=== PATIENT | female | born 1940 | race Caucasian/White ===

== ENCOUNTER 2021-02-01 06:49 | Observation (INO) | payer MEDICARE, SELFPAY ==
[2021-02-01] VITALS (15 sets, daily range): BP systolic 167–203; BP diastolic 88–118; PULSE 72–96; RESP 11–18; TEMP 36.2–37.2; O2SAT 94–99; BMI 24.5; BMI 22.8
--- NOTE | 2021-02-01 07:06 | EKG12_ITS ---
Test Reason : SOB Blood Pressure : / mmHG Vent. Rate : 089 BPM Atrial Rate : 089 BPM P-R Int : 182 ms QRS Dur : 088 ms QT Int : 358 ms P-R-T Axes : 079 039 072 degrees QTc Int : 435 ms Normal sinus rhythm Septal infarct , age undetermined Abnormal ECG Confirmed by EVELIN SINGH, BÁRBARA ([id number]), primer expeditor and drier VAZQUEZ HOLT ([id number]) on 02/05/2021 9:53:30 AM Referred By: JUNITO Confirmed By:BÁRBARA WATERS MD
--- NOTE | 2021-02-01 07:06 | RAD_ITS ---
EXAM DESCRIPTION: PORTABLE AP CHEST CLINICAL HISTORY: 80 years Female, chest pain chest pain COMPARISON: None FINDINGS: There is mild levoscoliosis of the thoracic spine. A filter device is noted projected over the inferior vena cava. The rest of the thorax is intact. The heart and mediastinum appear to be within normal limits, but appear to be deviated into the left hemithorax due to the scoliosis.. The lungs appear to be well areated without evidence of pneumonic consolidation or pleural effusion. There is flattening of the hemidiaphragms bilaterally due to COPD. RAD/Chest 1 View (Portable) IMPRESSION: Findings compatible with COPD, otherwise the chest shows no acute pathology Electronically Signed: Mikhail Cortes DO at 7:59 EDT Tel , Service support ,
--- NOTE | 2021-02-01 07:07 | EX.ED.DYSGE1 ---
HPI History of Present Illness Chief Complaint: General Illness Informant: patient Narrative Narrative: Patient presents with some chest heaviness. She describes it across the anterior chest. It does not radiate. This is not something she gets normally. It started this morning. It is better now but not gone. She always has dyspnea so she is not sure if that is worse than normal. She does admit that she has had mild nausea since late last night. But she has had no abdominal pain. She has not gotten diaphoretic. She has not gotten lightheaded or syncopal or presyncopal. She thinks the discomfort lasted a total of maybe 30 minutes or so. But it is not something she has gotten before. She does report having a stress test approximately 3 years ago in [place]. She has never had a heart catheterization. She has not smoked for a long time and has no significant family history of heart disease. She does have high blood pressure but no diabetes or known cholesterol. On history and review of systems I find out that she had an aortic aneurysm repaired about 2.5 years ago. This sounds like it was done through a arterial access stent at [facility]. She does have some lower back pain but it is in the sacral area and it something that she deals with frequently. This is not new or different. She has not had blood in the stools. PFSH PFS Medical History Aortic aneurysm COPD (chronic obstructive pulmonary disease) HTN (hypertension) Home Medications cholecalciferol (vitamin D3) [Vitamin D3] 10 mcg PO DAILY 02/01/21 [History Last Taken 01/31/21] escitalopram oxalate 10 mg PO DAILY 02/01/21 [History Last Taken 01/31/21] metoprolol succinate 25 mg PO BID 02/01/21 [History Last Taken 02/01/21] multivitamin [Multi-Daily] 1 tab PO DAILY 02/01/21 [History Last Taken 01/31/21] Allergy/AdvReac Type Severity Reaction Status Date / Time steriods Allergy Anaphylaxis Uncoded 02/01/21 06:54 Social History Smoking Status: Former smoker ROS ROS ED Constitutional Constitutional ED: Denies chills or fever(s) Eyes Eyes: Denies blurry vision ENT ENT ED: Denies rhinorrhea Cardiovascular Cardiovascular: Reports chest pain; Denies palpitations or racing heartbeat Respiratory/Chest Respiratory/Chest: Reports dyspnea and other Details: Patient has chronic dyspnea and has not had her Spiriva this morning. ; Denies cough or sputum Gastrointestinal Gastrointestinal: Reports nausea; Denies abdominal pain, diarrhea, melena or vomiting Genitourinary Genitourinary ED: Denies dysuria Musculoskeletal Musculoskeletal: Reports back pain Integumentary Denies rash Neurologic Neurologic: Denies headache(s), paresthesias or weakness Allergic/Immunologic Allergic/Immunologic ED: Denies urticaria EXAM Physical Exam Const Vital Signs: 02/01/21 06:51 02/01/21 06:58 02/01/21 07:09 Temperature 97.2 F L Temperature Source Temporal Pulse Rate 96 Respiratory Rate 18 Respiratory Effort Normal Blood Pressure 203/111 H Blood Pressure Mean 141 Pulse Ox 95 99 Oxygen Delivery Method Nasal Cannula Nasal Cannula Nasal Cannula Oxygen Flow Rate (L/min) 2 2 02/01/21 07:15 02/01/21 07:29 02/01/21 08:05 Temperature 97.2 F L 97.6 F L Temperature Source Temporal Oral Pulse Rate 96 85 89 Respiratory Rate 18 14 14 Respiratory Effort Blood Pressure 203/111 H 181/104 H Blood Pressure Mean 141 129 Pulse Ox 99 96 96 Oxygen Delivery Method Nasal Cannula Nasal Cannula Nasal Cannula Oxygen Flow Rate (L/min) 2 2 Positive well nourished and well developed General Appearance ED: well developed and NAD; Negative for cyanotic or diaphoretic HEENT Reports moist mucous membranes Negative for trauma Eyes EOMs intact bilaterally General Eye ED: Negative for pale conjunctiva Neck supple Chest Wall inspection of chest normal and palpation of chest normal Resp normal respiratory effort Resp Narrative: Mild decreased breath sounds but she does breathe shallowly. I do not hear any notable wheezes. Auscultation: diminished lung sounds Cardio regular rate and regular rhythm GI normal to inspection, nondistended, normoactive bowel sounds, non-tender, non-distended and no masses Inspection: Negative for abdominal distention Palpation: soft Back/Spine no CVA tenderness Back/Spine Narrative: Patient soreness is really down in the very low lumbar and primarily upper sacral area. Is not tender. General Back: CVA tenderness Extremity normal to inspection General Extremety ED: Negative for edema or tenderness General Extremity: Negative for edema Neuro oriented x3 Sensorium / Orientation: alert Psych mental status grossly normal Skin no rashes or lesions noted MDM MDM MDM Narrative Medical decision making narrative: Patient with a HEART score of 5. CBC shows no marked abnormalities. Electrolytes show minimal dehydration with elevated BUN to creatinine ratio but normal creatinine level. GFR is over 60. Sodium is minimally low at 127. Lipase is negative. This was checked because patient did have an episode of pancreatitis once many years ago. She is not having abdominal or epigastric pain. With her elevated heart score, nonspecific EKG changes I think she does warrant hospitalization for further evaluation. I have also noticed some PVCs occasionally and even one couplet on her monitor. However, upon recheck she feels back to her baseline. She has absolutely no dyspnea and no chest discomfort at all. I discussed with her and her family about the plan. I have the hospitalist on page. Lab Data Attestation: I reviewed the patient's lab results. Labs: Laboratory Results - last 24 hr 02/01/21 02/01/21 06:57 06:57 WBC 10.0 RBC 4.59 Hgb 12.1 Hct 38.6 MCV 84.1 MCH 26.4 L MCHC 31.3 L RDW Std Deviation 49.6 H RDW Coeff of Lucia 16.1 H Plt Count 333 MPV 10.1 Immature Gran % (Auto) 0.400 Neut % (Auto) 84.5 H Lymph % (Auto) 6.2 L [place] % (Auto) 7.9 Eos % (Auto) 0.8 Baso % (Auto) 0.2 Absolute Neuts (auto) 8.5 H Absolute Lymphs (auto) 0.62 L Nucleated RBC % 0 Sodium 127 L Potassium 4.2 Chloride 91 L Carbon Dioxide 31.0 Anion Gap 5 BUN 26 H Creatinine 0.92 Estim Creat Clear Calc 36.80 Est GFR (MDRD) Af Amer 75 Est GFR (MDRD) Non-Af 62 BUN/Creatinine Ratio 28.2 H Glucose 106 Calcium 9.2 Total Bilirubin 0.60 AST 21 ALT 18 Alkaline Phosphatase 63 Troponin I High Sens 9.4 Total Protein 8.4 H Albumin 3.4 Globulin 5.0 H Albumin/Globulin Ratio 0.7 L Lipase 86 Radiography Diagnostic Testing: Radiology Impression Chest X-Ray 02/01/21 07:06 IMPRESSION: Findings compatible with COPD, otherwise the chest shows no acute pathology Electronically Signed: Mikhail Cortes DO at 7:59 EDT Tel , Service support , EKG Initial EKG: Comments: EKG done for chest pain read by me shows sinus rhythm with rate of 89. No ventricular ectopy on the EKG. There is slight/minimal J-point depression in V4 through V6 with mildly peaked T waves. No acute ST elevation. GA interval, QRS duration and QTc are normal. No old for comparison. Discharge Plan Dx/Rx/DC Orders Clinical Impression: Chest heaviness Disposition Disposition: Acute Care Hospital [facility] Discharge Date/Time: 02/01/21 09:11
[2021-02-01] MEDS: Aspirin 81 MG TAB.CHEW 324 MG PO (07:12)
[2021-02-01 07:16] LABS: Absolute Lymphocyte Count 0.62 X10^3/uL (0.83-4.51); Absolute Neutrophil Count 8.5 X10^3/uL (2.0-7.7); Basophil# 0.02 X10^3/uL; Basophil% 0.2 % (0-1); Eosinophil# 0.08 X10^3/uL; Eosinophils% 0.8 % (0-5); Hematocrit 38.6 % (37-47); Hemoglobin 12.1 g/dL (12.0-15.0); Lymphocyte # 0.62 X10^3/ul (0.83-4.51); Lymphocyte % 6.2 % (19-41); Mean Corp Hgb Conc 31.3 g/dL (32-36); Mean Corpuscular Hgb 26.4 pg (27.0-32.0); Mean Corpuscular Volume 84.1 fL (81-99); Mean Platelet Vol. 10.1 fl (6.2-12.0); Monocyte# 0.79 X10^3/uL; Monocyte% 7.9 % (0-10); NRBC Flagged by Analyzer 0 % (0-5); Neutrophil # 8.45 X10^3/uL (2.7-7.7); Neutrophil % 84.5 % (47-70); Platelet Count 333 K/mm3 (150-450); RBC Distribution Width CV 16.1 % (11.6-14.6); RBC Distribution Width SD 49.6 fl (35.1-43.9); Red Blood Count 4.59 M/mm3 (4.2-5.4)
[2021-02-01 07:29] LABS: ALB/GLOB Ratio 0.7 RATIO (0.9-2.4); AST(SGOT) 21 U/L (15-37); Alanine Aminotransfer ALT/SGPT 18 U/L (13-56); Albumin, Serum 3.4 g/dL (3.2-5.0); Alkaline Phosphatase 63 U/L (45-117); Anion Gap 5 (5-15); BUN 26 mg/dL (7-18); BUN/Creat Ratio 28.2 RATIO (10-20); Calcium,Total 9.2 mg/dL (8.5-10.1); Chloride 91 mmol/L (98-107); Creatinine, Serum 0.92 mg/dL (0.55-1.02); EST Glomerular Filtration Rate 62 mL/min (>60); Est Glom Filt Rate - Afr Amer 75 mL/min (>60); Glucose 106 mg/dL (74-106); Lipase 86 U/L (73-393); Potassium 4.2 mmol/L (3.5-5.1); Protein, Total 8.4 g/dL (6.4-8.2); Sodium Level 127 mmol/L (136-145); Troponin-I HS 9.4 pg/mL (3.0-53.7)
[2021-02-01] MEDS: Ipratropium/Albuterol Sulfate 3 ML AMPUL.NEB INHALATION (07:29)
[2021-02-01] MEDS: Metoprolol(XL)Succ 25 MG Tablet PO ×2 (08:04→20:10)
--- NOTE | 2021-02-01 08:35 | EKG12_ITS ---
Test Reason : CP Blood Pressure : / mmHG Vent. Rate : 093 BPM Atrial Rate : 093 BPM P-R Int : 180 ms QRS Dur : 084 ms QT Int : 354 ms P-R-T Axes : 083 065 068 degrees QTc Int : 440 ms Normal sinus rhythm Normal ECG Confirmed by EVELIN SINGH, BÁRBARA ([id number]), news editor VAZQUEZ HOLT ([id number]) on 02/05/2021 10:09:44 AM Referred By: ASAD Confirmed By:BÁRBARA WATERS MD
[2021-02-01] MEDS: Acetaminophen 325 MG Tablet 650 MG PO ×2 (10:00→16:10)
[2021-02-01 10:06] LABS: Troponin-I HS 11.5 pg/mL (3.0-53.7)
--- NOTE | 2021-02-01 12:04 | CHAPLAIN ---
Type of Pastoral Visit _x__ Initial Visit ___ Follow-up Visit ___ On-call Visit ___ General Patient Visit ___ Spiritual Assessment ___ Family Conference ___ Bereavement ___ Rapid Response ___ Code Blue ___ Other (describe below) Pastoral Care Referral From _x__ Patient ___ Family ___ Nurse ___ Physician ___ Cut Roll Machine Offbearer ___ Newspaper Distributor Supervisor ___ Other (describe below) Sacrament/Intervention _x__ Active listening ___ Anointing ___ Buddhist ___ Bereavement ___ Communion ___ Amanda exploration ___ ___ Life review _x__ Prayer ___ Reconciliation ___ Sacrament of Sick _x__ Supportive presence ___ Wedding ___ Other (describe below) Pastoral Comments
[2021-02-01] MEDS: Multivitamins,Therapeutic Tablet 1 TABLET PO (12:48)
[2021-02-01] MEDS: Escitalopram Oxalate 10 MG Tablet PO (12:48)
[2021-02-01] MEDS: Cholecalciferol (VIT D3) 25 MCG TABLET (1,000 UNITS) PO (12:48)
[2021-02-01 14:05] LABS: Mucous, Urine 0 SEEN /hpf (<or=2+); Red Blood Cells-Urine 0 SEEN /hpf (0-5); Squamous Epithelial Cells - UA 0 SEEN /hpf (5-10)
[2021-02-01 14:06] LABS: Color, Urine Yellow (Yellow); Glucose, Dipstick Normal (Normal); Ketone-Dipstick 5 mg/dl (Negative); Leukocyte Esterase-Dipstick 500 /ul (Negative); Nitrite-Dipstick Negative (Negative); Occult Blood-Urine 50 /ul (Negative); Protein-Dipstick 100 mg/dl (Negative); Specific Gravity, Urine 1.015 (1.002-1.030); Urine Bilirubin Dipstick Negative (Negative); Urine Clarity Sl. Cloudy (Clear); Urine Urobilinogen Normal (Normal)
[2021-02-01 14:14] LABS: Bacteria 3+ /hpf (None Seen); White Blood Cells 10-25 SEEN /hpf (0-5)
--- NOTE | 2021-02-01 14:16 | PCM.HP.STD ---
HPI - General General Date of Admission: 02/01/21 Date of Service: 02/01/21 Chief Complaint: chest pressure HPI Narrative TRACI SOW, is a 80 F who presents chest pain that began today. Midsternal nonradiating. Has had chest pain similar and did have stress as about 3 years ago. Presented emergency room and work-up was unremarkable. The hospital service contacted for admission and further evaluation. [facility] Medical History Aortic aneurysm COPD (chronic obstructive pulmonary disease) HTN (hypertension) Home Medications cholecalciferol (vitamin D3) [Vitamin D3] 10 mcg PO DAILY 02/01/21 [History Last Taken 01/31/21] escitalopram oxalate 10 mg PO DAILY 02/01/21 [History Last Taken 01/31/21] metoprolol succinate 25 mg PO BID 02/01/21 [History Last Taken 02/01/21] multivitamin [Multi-Daily] 1 tab PO DAILY 02/01/21 [History Last Taken 01/31/21] Allergy/AdvReac Type Severity Reaction Status Date / Time steriods Allergy Anaphylaxis Uncoded 02/01/21 06:54 Social History Smoking Status: Former smoker ROS ROS Narrative Chronic shortness of breath but unchanged. Is on oxygen chronically. All review of systems were negative except as mentioned above in the history of present illness and the other review of systems. Cardiovascular Cardiovascular: Reports chest pain Vital Signs Vital Signs Vital Signs: 02/01/21 06:51 02/01/21 06:58 02/01/21 07:09 Temperature 36.2 C L Temperature Source Temporal Pulse Rate 96 Pulse Strength Respiratory Rate 18 Respiratory Effort Normal Respiratory Depth Respiratory Pattern Blood Pressure 203/111 H Blood Pressure [BP] Blood Pressure Mean 141 Blood Pressure Mean [BP] Blood Pressure Source Blood Pressure Source [BP] Blood Pressure Position Blood Pressure Position [BP] Blood Pressure Location Blood Pressure Location [BP] Pulse Ox 95 99 Oxygen Delivery Method Nasal Cannula Nasal Cannula Nasal Cannula Oxygen Flow Rate (L/min) 2 2 02/01/21 07:15 02/01/21 07:29 02/01/21 08:05 Temperature 36.2 C L 36.4 C L Temperature Source Temporal Oral Pulse Rate 96 85 89 Pulse Strength Respiratory Rate 18 14 14 Respiratory Effort Respiratory Depth Respiratory Pattern Blood Pressure 203/111 H 181/104 H Blood Pressure [BP] Blood Pressure Mean 141 129 Blood Pressure Mean [BP] Blood Pressure Source Blood Pressure Source [BP] Blood Pressure Position Blood Pressure Position [BP] Blood Pressure Location Blood Pressure Location [BP] Pulse Ox 99 96 96 Oxygen Delivery Method Nasal Cannula Nasal Cannula Nasal Cannula Oxygen Flow Rate (L/min) 2 2 02/01/21 08:57 02/01/21 09:49 02/01/21 09:55 Temperature 36.6 C Temperature Source Oral Pulse Rate 88 89 Pulse Strength Normal (2+) Respiratory Rate 11 L Respiratory Effort Normal Non-Labored Respiratory Depth Normal Respiratory Pattern Normal Blood Pressure 189/99 H Blood Pressure [BP] Blood Pressure Mean 129 Blood Pressure Mean [BP] Blood Pressure Source Blood Pressure Source [BP] Blood Pressure Position Blood Pressure Position [BP] Blood Pressure Location Blood Pressure Location [BP] Pulse Ox 97 Oxygen Delivery Method Room Air Nasal Cannula Oxygen Flow Rate (L/min) 2.5 02/01/21 10:21 02/01/21 11:40 Temperature 37.2 C Temperature Source Oral Pulse Rate 89 85 Pulse Strength Respiratory Rate 17 Respiratory Effort Respiratory Depth Respiratory Pattern Blood Pressure 201/104 H Blood Pressure [BP] 189/118 H Blood Pressure Mean 136 Blood Pressure Mean [BP] 141 Blood Pressure Source Monitor Blood Pressure Source [BP] Monitor Blood Pressure Position Semi-Fowlers Blood Pressure Position [BP] Semi-Fowlers Blood Pressure Location Right Arm Blood Pressure Location [BP] Right Forearm Pulse Ox 99 Oxygen Delivery Method Nasal Cannula Oxygen Flow Rate (L/min) 2.5 Weight Weight: 54.7 kg Body Mass Index (BMI) 22.8 Physical Exam Const alert HEENT normocephalic Eyes PERRL Resp normal respiratory effort Cardio regular rate, regular rhythm, S1 normal heart sound and S2 normal heart sound GI normal to inspection, nondistended, normoactive bowel sounds, soft to palpation and non-tender Extremity normal to inspection Results Lab / Micro Data Attestation: I reviewed the patient's lab results. Result Diagrams: 02/01/21 06:57 02/01/21 06:57 Labs: Laboratory Results - last 24 hr 02/01/21 06:57: Sodium 127 L, Potassium 4.2, Chloride 91 L, Carbon Dioxide 31.0, Anion Gap 5, BUN 26 H, Creatinine 0.92, Estim Creat Clear Calc 36.80, Est GFR (MDRD) Af Amer 75, Est GFR (MDRD) Non-Af 62, BUN/Creatinine Ratio 28.2 H, Glucose 106, Calcium 9.2, Total Bilirubin 0.60, AST 21, ALT 18, Alkaline Phosphatase 63, Troponin I High Sens 9.4, Total Protein 8.4 H, Albumin 3.4, Globulin 5.0 H, Albumin/Globulin Ratio 0.7 L, Lipase 86 02/01/21 06:57: WBC 10.0, RBC 4.59, Hgb 12.1, Hct 38.6, MCV 84.1, MCH 26.4 L, MCHC 31.3 L, RDW Std Deviation 49.6 H, RDW Coeff of Lucia 16.1 H, Plt Count 333, MPV 10.1, Immature Gran % (Auto) 0.400, Neut % (Auto) 84.5 H, Lymph % (Auto) 6.2 L, [place] % (Auto) 7.9, Eos % (Auto) 0.8, Baso % (Auto) 0.2, Absolute Neuts (auto) 8.5 H, Absolute Lymphs (auto) 0.62 L, Nucleated RBC % 0 02/01/21 09:40: Troponin I High Sens 11.5 02/01/21 13:52: Urine Color Yellow, Urine Clarity Sl. Cloudy, Urine pH 6.0, Ur Specific [place] 1.015, Urine Protein 100 H, Urine Glucose (UA) Normal, Urine Ketones 5 H, Urine Occult Blood 50 H, Urine Nitrite Negative, Urine Bilirubin Negative, Urine Urobilinogen Normal, Ur Leukocyte Esterase 500 H, Urine RBC 0 SEEN, Urine WBC 10-25 SEEN, Ur Squamous Epith Cells 0 SEEN, Urine Bacteria 3+, Urine Mucus 0 SEEN Micro: Microbiology 02/01/21 09:08 Mucosa - Nose SARS-CoV-2 Antigen (Rapid) - Final EKG Initial EKG: Attestation: I personally reviewed and interpreted this EKG as follows: Prior EKG tracings: available for review EKG Rhythm Intrepretation: Sinus Rhythm Radiology Impression Chest X-Ray 02/01/21 07:06 IMPRESSION: Findings compatible with COPD, otherwise the chest shows no acute pathology Electronically Signed: Mikhail Cortes DO at 7:59 EDT Tel , Service support , Assessment & Plan Assessment/Plan (1) Chest heaviness: (2) Hypertensive urgency: (3) Hyponatremia: PLAN: 1. Chest pain Heart score of five Plan is for a chemical stress tests on February 02 2. Hypertensive urgency Will give the patient lisinopril 20 mg and continue. 3. Hyponatremia No additional lab work available to compare to Not on the obvious medications that would contribute Check TSH and a cortisol in a.m. 4. VTE prophylaxis: Not indicated given observation status. Charges/Coding Visit Charges OBSV E&M: 17143 Initial observation care L2
[2021-02-01] MEDS: Lisinopril 20 MG Tablet PO (15:35)
[2021-02-01 16:03] LABS: Troponin-I HS 10.7 pg/mL (3.0-53.7)
--- NOTE | 2021-02-01 18:52 | NURSING ---
This RN in to speak with patient regarding call with Dr. Saeed. Daughter and son-in-law at bedside. RN informed patient that Dr. Saeed is aware that she would like to refuse her stress test due to fear of fpc kidney issues if dye is used per her previous briar cutter. RN explains to patient and family that per Dr. Saeed dye is not used during nuclear stress test, but that an isotope is used instead. Patient is still able to refuse her stress test if she likes. Daughter asks RN what would happen if patient wouldn't have stress test done. RN informed daughter that patient could suffer a severe cardiac event and could occur if a cardiac problem was not detected due to patient refusing stress test and possible heart catheterization if need should arise. Patient and daughter voice understanding of same.
[2021-02-02] VITALS (8 sets, daily range): BP systolic 115–185; BP diastolic 59–100; PULSE 78–92; RESP 14–18; TEMP 36.3–37.4; O2SAT 97–99
[2021-02-02] MEDS: Acetaminophen 325 MG Tablet 650 MG PO ×2 (00:48→08:39)
--- NOTE | 2021-02-02 05:55 | EKG12_ITS ---
Test Reason : AM EKG Blood Pressure : / mmHG Vent. Rate : 079 BPM Atrial Rate : 079 BPM P-R Int : 188 ms QRS Dur : 092 ms QT Int : 406 ms P-R-T Axes : 089 057 071 degrees QTc Int : 465 ms Sinus rhythm with occasional Premature ventricular complexes Otherwise normal ECG Confirmed by EVELIN SINGH, BÁRBARA ([id number]), image editor VAZQUEZ HOLT ([id number]) on 02/05/2021 10:09:09 AM Referred By: ANNA Confirmed By:BÁRBARA WATERS MD
[2021-02-02 06:19] LABS: Anion Gap 8 (5-15); BUN 20 mg/dL (7-18); BUN/Creat Ratio 24.8 RATIO (10-20); Calcium,Total 9.3 mg/dL (8.5-10.1); Chloride 88 mmol/L (98-107); Cholesterol 197 mg/dL (200); Creatinine, Serum 0.81 mg/dL (0.55-1.02); EST Glomerular Filtration Rate 73 mL/min (>60); Est Glom Filt Rate - Afr Amer 88 mL/min (>60); Glucose 107 mg/dL (74-106); High Density Lipoprotein 70 mg/dL; Potassium 4.4 mmol/L (3.5-5.1); Sodium Level 127 mmol/L (136-145); Triglycerides 74 mg/dL; Very Low Density Lipoprotein 15 mg/dL (5-40)
[2021-02-02] MEDS: Metoprolol(XL)Succ 25 MG Tablet PO (08:40)
[2021-02-02] MEDS: Aspirin E.C. 81 MG Tablet PO (08:40)
[2021-02-02] MEDS: Multivitamins,Therapeutic Tablet 1 TABLET PO (08:40)
[2021-02-02] MEDS: Escitalopram Oxalate 10 MG Tablet PO (08:40)
[2021-02-02] MEDS: Cholecalciferol (VIT D3) 25 MCG TABLET (1,000 UNITS) PO (08:41)
[2021-02-02] MEDS: Lisinopril 20 MG Tablet PO (08:41)
--- NOTE | 2021-02-02 10:20 | CASEMGMT ---
This RN CM to room with HERNÁNDEZ form, explanation done-pt voices understanding, and signs HERNÁNDEZ form. Original to chart and copy to pt. Pt states that she is now refusing stress test as of last evening. Pt voices no further questions/concerns/needs. [place] PRISCA MCGRATH
--- NOTE | 2021-02-02 11:47 | PCM.DC ---
Discharge Instructions Diet Discharge Diet: No restrictions Activity Discharge Activity: Return to Normal Activity Follow Up Care Test Results: Test results from this visit will be discussed in further detail at your follow-up appointment, if applicable. Discharge Plan Admission Admit Date/Time: 02/01/21 08:40 Primary Reason for Your Visit: chest pain Attending Provider: Billy Saeed Primary Care Provider: Ruth Mcallister Discharge Orders/Prescriptions Prescriptions: New lisinopril 20 mg Tablet 20 mg PO DAILY Qty: 30 RF: 0 aspirin 81 mg Tablet,Delayed Release (Dr/Ec) 81 mg PO DAILY@0800 Qty: 0 RF: 0 albuterol sulfate 90 mcg/actuation HFA aerosol inhaler 2 puff inhalation Q4H PRN (Reason: shortness of breath or wheezing) Qty: 8.5 RF: 0 Continued multivitamin Tablet 1 tab PO DAILY RF: 0 metoprolol succinate 25 mg Tablet Extended Release 24 Hr 25 mg PO BID RF: 0 cholecalciferol (vitamin D3) [Vitamin D3] 10 mcg (400 unit) Capsule 10 mcg PO DAILY RF: 0 escitalopram oxalate 10 mg Tablet 10 mg PO DAILY RF: 0 Referrals / Follow Up: Ruth Mcallister MD [Primary Care Provider] - Within 1 Week Disposition Disposition (needs filled in before D/C Order can be placed): Home, Self Care
--- NOTE | 2021-02-02 11:51 | DS.PCM_ITS ---
Providers Date of Admission: 02/01/21 Primary Care Physician: Dr. Ruth Mcallister MD Reason For Visit: CHEST PAIN Diagnosis Discharge Diagnosis (1) Chest heaviness: Status: Acute Code(s): R07.89 - Other chest pain (2) Hypertensive urgency: Status: Acute Code(s): I16.0 - Hypertensive urgency (3) Hyponatremia: Status: Acute Code(s): E87.1 - Hypo-osmolality and hyponatremia Medications at Discharge Home Medications cholecalciferol (vitamin D3) [Vitamin D3] 10 mcg PO DAILY 02/01/21 escitalopram oxalate 10 mg PO DAILY 02/01/21 metoprolol succinate 25 mg PO BID 02/01/21 multivitamin 1 tab PO DAILY 02/01/21 albuterol sulfate 2 puff INHALATION Q4H PRN #8.5 g 02/02/21 aspirin 81 mg PO DAILY@0800 #0 tab 02/02/21 lisinopril 20 mg PO DAILY #30 tab 02/02/21 Hospital Course Operations None Procedures None Summary of Care Provided Minutes Spent on Discharge: 26 Hospital Course: 80-year-old female presents with chest pain. Chest pain began on the fifth. It was midsternal nonradiating. Had a cardiac work-up including EKG and troponins that were unremarkable. Stress test was ordered, however the patient declined at. Given absence of any evidence of any ischemia and normal lab work, I feel that it is not unreasonable to not commence with a stress test. However the symptoms do recur then it be reconsidered. Similar symptoms may been exacerbated due to hypertensive urgency. Patient was have a systolic well over 200. Patient started lisinopril 20 mg and blood pressure has improved but still elevated with a systolic in the 170s. Patient will continue with the lisinopril 20 mg daily with possible titration or additional agents in the future if necessary. Patient did have some hyponatremia. Patient not any obvious medication secondary could be contributing. Cortisol was normal. This will require follow-up as outpatient. Physical Exam Const alert and oriented x3 Resp normal respiratory effort, no retractions, no use of accessory muscles and clear to auscultation bilaterally Cardio regular rate, regular rhythm, S1 normal heart sound and S2 normal heart sound Weight / BMI Weight Weight: 54.7 kg Body Mass Index (BMI) 22.8 ABG / Lab / Microbiology Data Result Diagrams: 02/01/21 06:57 02/02/21 05:23 Laboratory: Laboratory Results - last 24 hr 02/01/21 13:52: Urine Color Yellow, Urine Clarity Sl. Cloudy, Urine pH 6.0, Ur Specific [place] 1.015, Urine Protein 100 H, Urine Glucose (UA) Normal, Urine Ketones 5 H, Urine Occult Blood 50 H, Urine Nitrite Negative, Urine Bilirubin Ne gative, Urine Urobilinogen Normal, Ur Leukocyte Esterase 500 H, Urine RBC 0 S EEN, Urine WBC 10-25 SEEN, Ur Squamous Epith Cells 0 SEEN, Urine Bacteria 3+, Urine Mucus 0 SEEN 02/01/21 15:22: Troponin I High Sens 10.7 02/02/21 05:23: Sodium 127 L, Potassium 4.4, Chloride 88 L, Carbon Dioxide 31.0, Anion Gap 8, BUN 20 H, Creatinine 0.81, Estim Creat Clear Calc 41.80, Est GFR (MDRD) Af Amer 88, Est GFR (MDRD) Non-Af 73, BUN/Creatinine Ratio 24.8 H, Glucose 107 H, Calcium 9.3, Triglycerides 74, Cholesterol 197, LDL Cholesterol 112, VLDL Cholesterol 15, HDL Cholesterol 70 02/02/21 05:23: Cortisol 34.10 H Microbiology: Microbiology 02/01/21 09:08 Mucosa - Nose SARS-CoV-2 Antigen (Rapid) - Final D/C Instructions Discharge Diet: No restrictions Meaningful Use Info Meaningful Use Diagnoses (Choose all that apply): None applicable Discharge Plan Admission Admit Date/Time: 02/01/21 08:40 Primary Reason for Your Visit: chest pain Attending Provider: Billy Saeed Primary Care Provider: Ruth Mcallister Discharge Orders/Prescriptions Prescriptions: New lisinopril 20 mg Tablet 20 mg PO DAILY Qty: 30 RF: 0 aspirin 81 mg Tablet,Delayed Release (Dr/Ec) 81 mg PO DAILY@0800 Qty: 0 RF: 0 albuterol sulfate 90 mcg/actuation HFA aerosol inhaler 2 puff inhalation Q4H PRN (Reason: shortness of breath or wheezing) Qty: 8.5 RF: 0 Continued multivitamin Tablet 1 tab PO DAILY RF: 0 metoprolol succinate 25 mg Tablet Extended Release 24 Hr 25 mg PO BID RF: 0 cholecalciferol (vitamin D3) [Vitamin D3] 10 mcg (400 unit) Capsule 10 mcg PO DAILY RF: 0 escitalopram oxalate 10 mg Tablet 10 mg PO DAILY RF: 0 Referrals / Follow Up: Ruth Mcallister MD [Primary Care Provider] - Within 1 Week Disposition Disposition (needs filled in before D/C Order can be placed): Home, Self Care Charges/Coding Visit Charges OBSV E&M: 15900 Observation care discharge
== END 2021-02-02 11:50 | disposition home or self-care (01) ==
LOC: ED 08:19 → PCU 08:46
PROVIDERS: Emergency Provider Emergency Medicine; PCP Internal Medicine
DX: R07.89 Other chest pain (principal); I16.0 Hypertensive urgency; E87.1 Hypo-osmolality and hyponatremia; R11.0 Nausea; I10 Essential (primary) hypertension; M54.5 Low back pain; Z79.899 Other long term (current) drug therapy; J44.9 Chronic obstructive pulmonary disease, unspecified; Z87.891 Personal history of nicotine dependence
CPT/HCPCS: 36415; 71045; 80048; 80053; 80061; 81001; 82533; 83690; 84484; 85025; 87426; 93005; 94640; 99218; 99285; A4216; G0378; J2785

== ENCOUNTER 2022-01-31 08:56 | Emergency (ER) | payer MEDICARE, SELFPAY ==
[2022-01-31 08:57] VITALS: BP 165/84; PULSE 79; RESP 17; TEMP 36.1; O2SAT 97; BMI 22.6
--- NOTE | 2022-01-31 09:21 | EDS_ITS ---
HPI <EVE Rush - Last Filed: 01/31/22 13:34> History of Present Illness Chief Complaint: Abd Pain Narrative Narrative: 81-year-old female with history of TIA, anxiety, COPD on 3 L of nasal cannula daily presents to the emergency department with a 1 week of intermittent left upper abdominal pain. Patient states that the pain is intermittent, does not matter if she eats, moves. Patient states last evening when she went to bed she had no pain, she went to go to the bathroom in the middle the night, and the pain was so bad she was unable to sleep. Patient states the pain now has dull down to a small ache, however feels sore in her left upper quadrant wraps around to her back. She denies any fevers or chills, patient states to have nausea however no vomiting. Denies any difficulty urinating, denies any blood in stool or vomit. PFSH <EVE Rush - Last Filed: 01/31/22 13:34> [facility] Medical History (Updated 01/31/22 @ 13:34 by EVE Rush) Aortic aneurysm COPD (chronic obstructive pulmonary disease) HTN (hypertension) Home Medications cholecalciferol (vitamin D3) 10 mcg (400 unit) capsule (Vitamin D3) 10 mcg PO DAILY 02/01/21 [History Last Taken 01/31/21] escitalopram oxalate 10 mg tablet 10 mg PO DAILY 02/01/21 [History Last Taken 01/31/21] metoprolol succinate 25 mg tablet,extended release 24 hr 25 mg PO BID 02/01/21 [History Last Taken 02/01/21] multivitamin 1 tab PO DAILY 02/01/21 [History Last Taken 01/31/21] tiotropium bromide 18 mcg capsule with inhalation device (Spiriva with HandiHaler) 18 mcg inhalation DAILY 02/02/21 [History Last Taken Unknown] Allergy/AdvReac Type Severity Reaction Status Date / Time steriods Allergy Anaphylaxis Uncoded 01/31/22 08:56 Surgical History H/O: hysterectomy Social History Smoking Status: Former smoker ROS <EVE Rush - Last Filed: 01/31/22 13:34> ROS ED ROS Narrative Constitutional: Negative for fever, chills, weight loss, weakness Eyes: Negative for vision loss, vision change, double vision ENT: Negative for any sore throat, ear pain, congestion Cardiovascular: Negative for any chest pain, tightness, palpitations Respiratory: Negative for any cough, sputum production, hemoptysis, dyspnea, dyspnea on exertion, orthopnea Gastrointestinal: Negative for any vomiting, diarrhea, constipation, blood in stool, blood in vomit. Positive for abdominal pain, nausea : Negative for any urinary frequency, dysuria, retention, blood in urine Muscle skeletal: Negative for any muscle joint pain, stiffness, myalgias, arthralgias, neck pain, back pain Neurological: Negative for any headache, syncope, numbness or tingling, dizziness Skin: Negative for any rashes, lumps, itching, abrasions, lacerations Psychiatric: Negative for any depression, anxiety, stress, suicidal ideation, homicidal ideation Hematologic: Negative for any easy bruising, excessive bruising, easy bleeding Allergies: Negative for any eczema, hives, rash EXAM <Darwin GrupoDERRICK lala-C - Last Filed: 01/31/22 13:34> Physical Exam Narrative Exam Narrative: Vital signs reviewed. Patient's vital signs stable, patient is on 3 L nasal cannula. HEET: Head normocephalic atraumatic, TMs clear bilaterally. Posterior pharynx is clear, moist mucous membranes. Nares clear bilaterally. Neck: Supple with no lymphadenopathy or tenderness. No signs of meningismus, negative jolt sign. Cardiac: Regular rate and rhythm no murmurs gallops or rubs, equal peripheral pulses bilaterally. Respiratory: Lungs clear to auscultation bilaterally. No chest tenderness. Abdomen: Soft, nontender, nondistended. No abdominal bruit or pulsatile masses. No hepatosplenomegaly Extremities: No peripheral edema, no signs of gross trauma or deformity. Active full range of motion of all extremities. Neuro: Cranial nerves II through XII intact, no focal neurological deficits. Skin: Clean dry and intact with no rash, purpura, petechiae, vesicles or pustules. Backs/flank: No CVA tenderness, no midline spinal tenderness, no deformity. Psych: Normal mood and affect. No SI, HI or acute psychosis. Const Vital Signs: 01/31/22 08:57 01/31/22 11:12 01/31/22 12:00 Temperature 97.0 F L Temperature Source Temporal Pulse Rate 79 76 Respiratory Rate 17 18 Blood Pressure 165/84 H 169/96 H Blood Pressure Mean 111 120 Pulse Ox 97 100 Oxygen Delivery Method Nasal Cannula Room Air Nasal Cannula Oxygen Flow Rate (L/min) 3 3 Positive well nourished and well developed General Appearance ED: well developed <Dr. Kade Vuong DO - Last Filed: 01/31/22 14:45> Physical Exam Const Vital Signs: 01/31/22 08:57 01/31/22 11:12 01/31/22 12:00 Temperature 97.0 F L Temperature Source Temporal Pulse Rate 79 76 Respiratory Rate 17 18 Blood Pressure 165/84 H 169/96 H Blood Pressure Mean 111 120 Pulse Ox 97 100 Oxygen Delivery Method Nasal Cannula Room Air Nasal Cannula Oxygen Flow Rate (L/min) 3 3 MDM <EVE Rush - Last Filed: 01/31/22 13:34> MDM Lab Data Labs: Laboratory Results - last 24 hr 01/31/22 01/31/22 01/31/22 09:34 09:34 10:55 WBC 8.0 RBC 4.36 Hgb 11.6 L Hct 36.4 L MCV 83.5 MCH 26.6 L MCHC 31.9 L RDW Std Deviation 49.0 H RDW Coeff of Lucia 16.1 H Plt Count 277 MPV 9.7 Immature Gran % (Auto) 0.400 Neut % (Auto) 83.7 H Lymph % (Auto) 6.1 L [place] % (Auto) 7.4 Eos % (Auto) 2.0 Baso % (Auto) 0.4 Absolute Neuts (auto) 6.7 Absolute Lymphs (auto) 0.49 L Nucleated RBC % 0 Platelet Estimate ADEQUATE RBC Morphology NORM C+C Sodium 129 L Potassium 4.4 Chloride 92 L Carbon Dioxide 33.0 H Anion Gap 4 L BUN 26 H Creatinine 1.01 Estim Creat Clear Calc 31.38 Est GFR (MDRD) Af Amer 68 Est GFR (MDRD) Non-Af 56 L BUN/Creatinine Ratio 25.7 H Glucose 91 Calcium 8.9 Total Bilirubin 0.40 AST 19 ALT 18 Alkaline Phosphatase 69 Total Protein 7.9 Albumin 3.1 L Globulin 4.8 H Albumin/Globulin Ratio 0.6 L Lipase 73 Urine Color Yellow Urine Clarity Sl. Cloudy Urine pH 6.0 Ur Specific [place] 1.015 Urine Protein 15 H Urine Glucose (UA) Normal Urine Ketones Negative Urine Occult Blood 10 H Urine Nitrite Positive H Urine Bilirubin Negative Urine Urobilinogen Normal Ur Leukocyte Esterase 25 H Urine RBC 0 SEEN Urine WBC 0-5 SEEN Ur Squamous Epith Cells 0 SEEN Urine Bacteria 1+ Urine Mucus 0 SEEN Radiography Diagnostic Testing: Clinical Impression(s) from Imaging Studies Abdomen/Pelvis CT 01/31/22 10:15 IMPRESSION: 1. 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 An endograft of the abdominal aorta and iliac arteries is also present. 2. Small gallstone 3. Colonic diverticulosis 4. 4 mm right kidney stone Electronically Signed: Luigi Hamilton MD at 10:33 EDT , Gallbladder Ultrasound 01/31/22 11:06 IMPRESSION: 1. Single 1 cm gallstone and small amount of gallbladder sludge Electronically Signed: Luigi Hamilton MD at 13:01 EDT , Treatment and Re-Evaluation Narrative: Patient appears well, patient appears nontoxic, vital signs are stable. Patient presents to the emergency department with complaints of left upper abdominal pain that radiates to her back on and off for 1 week. Patient did receive a full abdominal work-up, patient CBC was unremarkable, chemistry shows slight hyponatremia with a sodium of 129, patient's urinalysis does show infection with 1+ bacteria, 25 leukocytes, positive nitrites. She was given IV Rocephin. Patient did receive a CT of the abdomen pelvis without contrast, it showed her old 9.9 cm aneurysm that has been corrected. Patient does have a small gallstone, some diverticulosis as well as a 4 mm right kidney stone. Patient will receive a right upper quadrant ultrasound to rule out any other pathology. Patient is resting comfortably in bed. Patient received a ultrasound of the right upper quadrant, there was a single 1 cm gallstone and a small amount of gallbladder sludge. Patient on reassessment was not in any discomfort, patient appears nontoxic. At this time I believe the patient follow-up outpatient. She will follow-up with Dr. Lal who is a surgeon, and will follow up outpatient. Patient given strict return precaution to return for any worsening pain, fever, chills, nausea vomiting <Dr. Kade Vuong, DO - Last Filed: 01/31/22 14:45> [facility] Narrative Medical decision making narrative: Attending note: Patient seen and evaluated with septic tank setter. I perform my own ofde-tv-rtac evaluation. I agree with the plan of work-up. Mid abdominal pain rating to left side since yesterday. Nausea without vomiting. She did not eat breakfast. For dinner ate a sandwich with Darden there is no cheese. Denies fevers. History of AAA with repair 4 years ago. Exam epigastric tenderness without guarding or rebound negative Haider's McBurney's tenderness. There is no rash on the left side of abdomen. No ecchymosis. Abdominal labs normal except for sodium 129. Urine noted signs of infection culture sent started on antibiotics. CT scan negative for acute process except for noted gallstones. Other stable abdominal stenting with no leaking. Patient was traditional Pepcid Toradol. Ultrasound obtained due to cholelithiasis noted cholelithiasis with slight/there is no signs of cholecystitis. Symptoms were improving. Discharged with follow-up with surgery as an outpatient return precautions. Lab Data Labs: Laboratory Results - last 24 hr 01/31/22 01/31/22 01/31/22 09:34 09:34 10:55 WBC 8.0 RBC 4.36 Hgb 11.6 L Hct 36.4 L MCV 83.5 MCH 26.6 L MCHC 31.9 L RDW Std Deviation 49.0 H RDW Coeff of Lucia 16.1 H Plt Count 277 MPV 9.7 Immature Gran % (Auto) 0.400 Neut % (Auto) 83.7 H Lymph % (Auto) 6.1 L [place] % (Auto) 7.4 Eos % (Auto) 2.0 Baso % (Auto) 0.4 Absolute Neuts (auto) 6.7 Absolute Lymphs (auto) 0.49 L Nucleated RBC % 0 Platelet Estimate ADEQUATE RBC Morphology NORM C+C Sodium 129 L Potassium 4.4 Chloride 92 L Carbon Dioxide 33.0 H Anion Gap 4 L BUN 26 H Creatinine 1.01 Estim Creat Clear Calc 31.38 Est GFR (MDRD) Af Amer 68 Est GFR (MDRD) Non-Af 56 L BUN/Creatinine Ratio 25.7 H Glucose 91 Calcium 8.9 Total Bilirubin 0.40 AST 19 ALT 18 Alkaline Phosphatase 69 Total Protein 7.9 Albumin 3.1 L Globulin 4.8 H Albumin/Globulin Ratio 0.6 L Lipase 73 Urine Color Yellow Urine Clarity Sl. Cloudy Urine pH 6.0 Ur Specific [place] 1.015 Urine Protein 15 H Urine Glucose (UA) Normal Urine Ketones Negative Urine Occult Blood 10 H Urine Nitrite Positive H Urine Bilirubin Negative Urine Urobilinogen Normal Ur Leukocyte Esterase 25 H Urine RBC 0 SEEN Urine WBC 0-5 SEEN Ur Squamous Epith Cells 0 SEEN Urine Bacteria 1+ Urine Mucus 0 SEEN Radiography Diagnostic Testing: Clinical Impression(s) from Imaging Studies Abdomen/Pelvis CT 01/31/22 10:15 IMPRESSION: 1. 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 An endograft of the abdominal aorta and iliac arteries is also present. 2. Small gallstone 3. Colonic diverticulosis 4. 4 mm right kidney stone Electronically Signed: Luigi Hamilton MD at 10:33 EDT Reading Location ID and State: [id number] , Service support , Gallbladder Ultrasound 01/31/22 11:06 IMPRESSION: 1. Single 1 cm gallstone and small amount of gallbladder sludge Electronically Signed: Luigi Hamilton MD at 13:01 EDT , Discharge Plan Triage Chief Complaint: Abd Pain ED Midlevel Provider: Darwin Pedraza ED Provider: Kade Vuong Dx/Rx/DC Orders Clinical Impression: Abdominal pain, Cholelithiasis, Nausea & vomiting Instructions: Abdominal Pain, ED Gallstones with Biliary Colic Prescriptions: No Action multivitamin Tablet 1 tab PO DAILY metoprolol succinate 25 mg Tablet Extended Release 24 Hr 25 mg PO BID cholecalciferol (vitamin D3) [Vitamin D3] 10 mcg (400 unit) Capsule 10 mcg PO DAILY escitalopram oxalate 10 mg Tablet 10 mg PO DAILY Spiriva with HandiHaler 18 mcg capsule, w/inhalation device 18 mcg INHALATION DAILY Label Comments: INHALE CONTENTS OF 1 CAPSULE VIA HANDIHALER ONCE DAILY Primary Care Provider: Ruth Mcallister Referrals: Ruth Mcallister MD [Primary Care Provider] - Indu Rodriguez MD [Med Staff - Active Staff] - (Please follow-up in the next 1 to 2 weeks) Activity Restrictions/Additional Instructions: Please return here for uncontrolled pain, nausea, vomiting, fever or chills. Disposition Disposition: Home, Self Care Discharge Date/Time: 01/31/22 13:56
[2022-01-31 09:47] LABS: Absolute Lymphocyte Count 0.49 X10^3/uL (0.83-4.51); Absolute Neutrophil Count 6.7 X10^3/uL (2.0-7.7); Basophil# 0.03 X10^3/uL; Basophil% 0.4 % (0-1); Eosinophil# 0.16 X10^3/uL; Hematocrit 36.4 % (37-47); Hemoglobin 11.6 g/dL (12.0-15.0); Lymphocyte # 0.49 X10^3/ul (0.83-4.51); Lymphocyte % 6.1 % (19-41); Mean Corp Hgb Conc 31.9 g/dL (32-36); Mean Corpuscular Hgb 26.6 pg (27.0-32.0); Mean Corpuscular Volume 83.5 fL (81-99); Mean Platelet Vol. 9.7 fl (6.2-12.0); Monocyte# 0.59 X10^3/uL; Monocyte% 7.4 % (0-10); NRBC Flagged by Analyzer 0 % (0-5); Neutrophil # 6.71 X10^3/uL (2.7-7.7); Neutrophil % 83.7 % (47-70); POSITIVE DIFFERENTIAL YES; Platelet Count 277 K/mm3 (150-450); RBC Distribution Width CV 16.1 % (11.6-14.6); Red Blood Count 4.36 M/mm3 (4.2-5.4)
[2022-01-31 09:52] LABS: Differential Indicated SCAN CRITERIA MET
[2022-01-31 10:00] LABS: ALB/GLOB Ratio 0.6 RATIO (0.9-2.4); AST(SGOT) 19 U/L (15-37); Alanine Aminotransfer ALT/SGPT 18 U/L (13-56); Albumin, Serum 3.1 g/dL (3.2-5.0); Alkaline Phosphatase 69 U/L (45-117); Anion Gap 4 (5-15); BUN 26 mg/dL (7-18); BUN/Creat Ratio 25.7 RATIO (10-20); Calcium,Total 8.9 mg/dL (8.5-10.1); Chloride 92 mmol/L (98-107); Creatinine, Serum 1.01 mg/dL (0.55-1.02); EST Glomerular Filtration Rate 56 mL/min (>60); Est Glom Filt Rate - Afr Amer 68 mL/min (>60); Estimated Creatinine Clearance 31.38 ml/min; Globulin 4.8 g/dL (2.2-4.2); Glucose 91 mg/dL (74-106); Lipase 73 U/L (73-393); Potassium 4.4 mmol/L (3.5-5.1); Protein, Total 7.9 g/dL (6.4-8.2); Sodium Level 129 mmol/L (136-145)
[2022-01-31] MEDS: Ondansetron 4 MG/2 ML Vial IV (10:02)
[2022-01-31] MEDS: 0.9% Normal Saline 1,000 ML 1000 ML IV (10:02)
--- NOTE | 2022-01-31 10:15 | CT_ITS ---
STUDY: CT ABDOMEN AND PELVIS WITHOUT CONTRAST REASON FOR EXAM: Female, 81 years old. abdominal pain ABDOMINAL PAIN X 1 WEEK WITH NAUSEA RADIATION DOSAGE (If Supplied By Facility): CTDIvol = ( 6.33 ) mGy, DLP = ( 284.66 ) mGycm TECHNIQUE: Transaxial images were obtained from the dome of the diaphragm to the symphysis pubis without oral contrast, and without intravenous contrast. Sagittal and coronal images were reconstructed. Individualized dose optimization techniques were used for this CT. COMPARISON: None. 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 An endograft of the abdominal aorta and iliac arteries is also present. 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 No free fluid or free air is present. 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 Diffuse cystic emphysematous changes are present. Normal liver. There is a solitary gallstone. Normal spleen. Normal pancreas. Normal bilateral adrenal glands. There is mild cortical atrophy of the right kidney, consistent with chronic medical renal disease. A 4 mm calyceal stone is present upper pole of the right kidney. Normal left kidney. Normal visualized stomach. Normal small intestine. There are multiple colonic diverticula consistent with diverticulosis. The appendix is visualized and appears normal. No visualized bowel dilatation or evidence of obstruction. Normal inferior vena cava. Normal retroperitoneum. Normal urinary bladder. Normal abdominal wall. There are diffuse degenerative changes of the visualized lumbar spine. CT/Abdomen/Pelvis without Cont IMPRESSION: 1. 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 An endograft of the abdominal aorta and iliac arteries is also present. 2. Small gallstone 3. Colonic diverticulosis 4. 4 mm right kidney stone Electronically Signed: Luigi Hamilton MD at 10:33 EDT ,
[2022-01-31 10:25] LABS: Platelet Estimate ADEQUATE (ADEQ); Red Cell Morphology NORM C+C NORMAL (NORM C&C)
[2022-01-31 10:58] LABS: Mucous, Urine 0 SEEN /hpf (<or=2+); Red Blood Cells-Urine 0 SEEN /hpf (0-5); Squamous Epithelial Cells - UA 0 SEEN /hpf (5-10)
[2022-01-31 11:00] LABS: Color, Urine Yellow (Yellow); Glucose, Dipstick Normal (Normal); Ketone-Dipstick Negative (Negative); Leukocyte Esterase-Dipstick 25 /ul (Negative); Nitrite-Dipstick Positive (Negative); Occult Blood-Urine 10 /ul (Negative); Protein-Dipstick 15 mg/dl (Negative); Specific Gravity, Urine 1.015 (1.002-1.030); Urine Bilirubin Dipstick Negative (Negative); Urine Clarity Sl. Cloudy (Clear); Urine Urobilinogen Normal (Normal)
[2022-01-31 11:06] LABS: Bacteria 1+ /hpf (None Seen); White Blood Cells 0-5 SEEN /hpf (0-5)
--- NOTE | 2022-01-31 11:06 | US_ITS ---
STUDY: ABDOMINAL ULTRASOUND - RIGHT UPPER QUADRANT REASON FOR VISIT: Female, 81 years old abd pain TECHNIQUE: Ultrasound evaluation of the right upper quadrant was performed with real-time and static chu-scale imaging. TECHNICAL QUALITY: Adequate. COMPARISON: CT of abdomen and pelvis dated January 31, 2022 FINDINGS: Liver: The liver measures 16.8 cm. There is normal echogenicity of the liver. The bile ducts are within normal limits. There is hepatic color flow. The direction of portal flow is hepatopetal. There is no demonstrated mass lesion. Gallbladder: Normal distended gallbladder. The gallbladder wall measures mm. There is a negative sonographic Haider''s sign. There is no pericholecystic fluid. A single 1.09 cm stone is present. A small amount of gallbladder sludge is present. Common Bile Duct (C.B.D.): The common bile duct measures mm. Pancreas: Normal size of the head and body of the pancreas. There is normal echogenicity of the pancreas. There is no demonstrated pancreatic mass or cyst. Right Kidney: Normal size of the right kidney. The right kidney measures 8.7 x 4.5 x 3.9 cm. Normal renal cortex. The right cortex measures 1.1 cm. There is no demonstrated renal mass or cyst. There is no right hydronephrosis. US/Gallbladder IMPRESSION: 1. Single 1 cm gallstone and small amount of gallbladder sludge Electronically Signed: Luigi Hamilton MD at 13:01 EDT ,
[2022-01-31] MEDS: Ketorolac 15 MG/ML Vial IV (11:16)
[2022-01-31] MEDS: Famotidine 200 MG/20 ML MDV 20 MG in 0.9% Normal Saline (Pres. free 8 ML 300 MG IV (11:21)
[2022-01-31] MEDS: Ceftriaxone 1 GM/50 ML BAG IV (11:29)
[2022-01-31 12:00] VITALS: BP 169/96; PULSE 76; RESP 18; O2SAT 100
== END 2022-01-31 13:56 | disposition home or self-care (01) ==
PROVIDERS: Nurse Practitioner; Emergency Provider Emergency Medicine; PCP Internal Medicine; Visit Provider Emergency Medicine
DX: K80.20 Calculus of gallbladder without cholecystitis without obstruction (principal); J44.9 Chronic obstructive pulmonary disease, unspecified; F41.9 Anxiety disorder, unspecified; I10 Essential (primary) hypertension; Z87.891 Personal history of nicotine dependence; Z86.73 Personal history of transient ischemic attack (TIA), and cerebral infarction without residual deficits; Z79.899 Other long term (current) drug therapy
CPT/HCPCS: 74176; 76705; 80053; 81001; 83690; 85025; 87086; 87088; 87186; 96365; 96368; 96375; 99285; P9612; J2405; J3490

== ENCOUNTER 2023-04-27 09:24 | Observation (INO) | payer MEDICARE, SELFPAY ==
[2023-04-27] VITALS (11 sets, daily range): BP systolic 121–176; BP diastolic 62–96; PULSE 78–99; RESP 16–19; TEMP 36.6–37; O2SAT 93–100; BMI 21.2; BMI 21.5
[2023-04-27 10:13] LABS: Absolute Lymphocyte Count 0.25 X10^3/uL (0.83-4.51); Absolute Neutrophil Count 14.2 X10^3/uL (2.0-7.7); Basophil# 0.04 X10^3/uL; Basophil% 0.3 % (0-1); Eosinophil# 0.07 X10^3/uL; Eosinophils% 0.4 % (0-5); Hemoglobin 11.5 g/dL (12.0-15.0); Lymphocyte # 0.25 X10^3/ul (0.83-4.51); Lymphocyte % 1.6 % (19-41); Mean Corp Hgb Conc 31.1 g/dL (32-36); Mean Corpuscular Hgb 26.6 pg (27.0-32.0); Mean Corpuscular Volume 85.6 fL (81-99); Mean Platelet Vol. 10.6 fl (6.2-12.0); Monocyte# 0.93 X10^3/uL; NRBC Flagged by Analyzer 0 % (0-5); Neutrophil # 14.23 X10^3/uL (2.7-7.7); Neutrophil % 91.3 % (47-70); POSITIVE DIFFERENTIAL YES; Platelet Count 258 K/mm3 (150-450); RBC Distribution Width CV 16.1 % (11.6-14.6); RBC Distribution Width SD 50.3 fl (35.1-43.9); Red Blood Count 4.32 M/mm3 (4.2-5.4); White Blood Count 15.6 K/mm3 (4.4-11.0)
[2023-04-27 10:19] LABS: Differential Indicated SCAN CRITERIA MET
--- NOTE | 2023-04-27 10:23 | EKG12_ITS ---
Test Reason : Blood Pressure : / mmHG Vent. Rate : 093 BPM Atrial Rate : 093 BPM P-R Int : 174 ms QRS Dur : 086 ms QT Int : 356 ms P-R-T Axes : 087 058 081 degrees QTc Int : 442 ms Normal sinus rhythm Possible Left atrial enlargement Nonspecific ST abnormality Abnormal ECG Confirmed by YESY SINGH, MARY ANNE ([id number]), editor magazine [employer] ([id number]) on 04/29/2023 11:53:38 AM Referred By: Confirmed By:MARY ANNE HAYWARD MD
[2023-04-27 10:28] LABS: ALB/GLOB Ratio 0.7 RATIO (0.9-2.4); AST(SGOT) 37 U/L (15-37); Alanine Aminotransfer ALT/SGPT 35 U/L (13-56); Albumin, Serum 3.3 g/dL (3.2-5.0); Alkaline Phosphatase 84 U/L (45-117); Anion Gap 4 (5-15); BUN 30 mg/dL (7-18); BUN/Creat Ratio 32.4 RATIO (10-20); Calcium,Total 9.1 mg/dL (8.5-10.1); Chloride 94 mmol/L (98-107); Creatinine, Serum 0.92 mg/dL (0.55-1.02); EST Glomerular Filtration Rate 62 mL/min (>60); Est Glom Filt Rate - Afr Amer 75 mL/min (>60); Estimated Creatinine Clearance 37.29 ml/min; Globulin 4.9 g/dL (2.2-4.2); Glucose 115 mg/dL (74-106); Potassium 4.9 mmol/L (3.5-5.1); Protein, Total 8.2 g/dL (6.4-8.2); Sodium Level 132 mmol/L (136-145)
[2023-04-27 10:49] LABS: Mucous, Urine 0 SEEN /hpf (<or=2+); Red Blood Cells-Urine 0 SEEN /hpf (0-5); Squamous Epithelial Cells - UA 0 SEEN /hpf (5-10)
[2023-04-27 10:52] LABS: BNP,B-Type NATRIURETIC PEPTIDE 468.5 pg/mL (0-100)
[2023-04-27 10:55] LABS: Lipase 40 U/L (13-75); Troponin-I HS 10 pg/mL (3.0-54.0)
--- NOTE | 2023-04-27 10:55 | RAD_ITS ---
STUDY: X-RAY CHEST REASON FOR EXAM: Female, 82 years old. sob TECHNIQUE: Single AP portable view of the chest. COMPARISON: 02/01/2021 FINDINGS: There is hyperinflation of the lungs consistent with chronic obstructive lung disease (COPD). There is no demonstrated pleural abnormality. Normal size heart. Normal mediastinum and adrien. Normal visualized pulmonary arteries. There is atherosclerotic tortuosity of the aortic arch and descending thoracic aorta. There is a levoscoliosis of the thoracic spine. Normal visualized ribs, clavicles, and shoulders. There is no demonstrated abnormality of the visualized soft tissue structures of the upper abdomen. RAD/Chest 1 View (Portable) IMPRESSION: Emphysema without pneumonia or atelectasis. Electronically Signed: Benjie Joshi MD at 11:15 EDT ,
[2023-04-27 11:01] LABS: Color, Urine Yellow (Yellow); Glucose, Dipstick Normal (Normal); Ketone-Dipstick 5 mg/dl (Negative); Leukocyte Esterase-Dipstick Negative /ul (Negative); Nitrite-Dipstick Positive (Negative); Occult Blood-Urine 10 /ul (Negative); Protein-Dipstick 100 mg/dl (Negative); Urine Bilirubin Dipstick Negative (Negative); Urine Clarity Clear (Clear); Urine Urobilinogen Normal (Normal)
--- NOTE | 2023-04-27 11:09 | EX.ED.DYSGE1 ---
HPI History of Present Illness Chief Complaint: Abd Pain Narrative Narrative: Patient is a 82-year-old female who is presenting to the ER with multiple complaints. Patient is abdominal pain, back pain, intermittent chills. PFSH PFSH Medical History Anxiety and depression Aortic aneurysm COPD (chronic obstructive pulmonary disease) HTN (hypertension) Pancreatitis Home Medications cholecalciferol (vitamin D3) 10 mcg (400 unit) capsule (Vitamin D3) 10 mcg PO DAILY 02/01/21 [History Last Taken 01/31/21] escitalopram oxalate 10 mg tablet 10 mg PO DAILY 02/01/21 [History Last Taken 01/31/21] metoprolol succinate 25 mg tablet,extended release 24 hr 25 mg PO BID 02/01/21 [History Last Taken 02/01/21] multivitamin 1 tab PO DAILY 02/01/21 [History Last Taken 01/31/21] tiotropium bromide 18 mcg capsule with inhalation device (Spiriva with HandiHaler) 18 mcg inhalation DAILY 02/02/21 [History Last Taken Unknown] hydroxyzine pamoate 25 mg capsule 25 mg PO QHS 02/05/22 [History Last Taken Unknown] sucralfate 1 gram tablet 1 g PO QACHS #56 tabs 02/05/22 [Rx Last Taken Unknown] pantoprazole 40 mg tablet,delayed release See Rx Instructions .Route .COMPLEX #30 tabs 02/27/22 [Rx Last Taken Unknown] Allergy/AdvReac Type Severity Reaction Status Date / Time Corticosteroids Allergy Severe Anaphylaxis Verified 04/27/23 09:26 (Glucocorticoids) [steroids] Surgical History H/O: hysterectomy Hx of heart artery stent Social History Smoking Status: Former smoker ROS ROS ED ROS Narrative REVIEW OF SYSTEMS: Unless otherwise stated in this report the patient's positive and negative responses for review of systems for constitutional, eyes, ENT, cardiovascular, respiratory, gastrointestinal, neurological, , musculoskeletal, and integument systems and related systems to the presenting problem are either stated in the history of present illness or were not pertinent or were negative for the symptoms and/or complaints related to the presenting medical problem. EXAM Physical Exam Narrative Exam Narrative: Vital signs reviewed and patient is not hypoxic. General: The patient appears well and in no apparent distress. Patient is resting comfortably on cart. Not toxic, lethargic, or listless. Skin: Warm, dry, no pallor noted. There is no rash noted. Head: Normocephalic, atraumatic Eye: Normal conjunctiva, no drainage, EOMI. PERRL. Ears, Nose, Mouth, and Throat: oral mucosa is moist. Nares patent. Mouth without vesicles. Cardiovascular: Regular Rate and Rhythm, no murmurs, gallops, or rubs Respiratory: Patient is in no distress, no accessory muscle use, lungs are clear to auscultation, no wheezing, rales or rhonchi Back: non-tender, no CVA tenderness bilaterally to percussion. NO CTLS midline or paraspinal tenderness to palpation. GI: Soft, no tenderness to palpation, no masses appreciated. No rebound, guarding, or rigidity noted. Musculoskeletal: The patient has full range of motion of all extremities and joints with no difficulty. Patient has no motor, no sensory deficits. Neurological: A&O x4, normal speech, no focal neurological deficits. Psychiatric: Cooperative Const Vital Signs: 04/27/23 09:26 04/27/23 11:09 04/27/23 14:07 Temperature 98.6 F Temperature Source Temporal Pulse Rate 99 86 88 Respiratory Rate 18 18 19 H Blood Pressure 170/84 H 149/77 H Blood Pressure Mean 112 101 Pulse Ox 96 95 95 Oxygen Delivery Method Nasal Cannula Nasal Cannula Nasal Cannula Oxygen Flow Rate (L/min) 3 3 3 MDM MDM MDM Narrative Medical decision making narrative: Patient has a history of emphysema and COPD, patient wears nasal cannula oxygen at all times at home. Patient will be admitted for observation to [facility]. Patient was given 1 L of IV fluid along with Rocephin. Patient was attempted to be ambulated, patient was not able to ambulate with a walker which she normally does at home. Patient will be admitted to medical team for further treatment. Lab Data Attestation: I reviewed the patient's lab results. Lab results narrative: Leukocytosis of 15, BUN is 30, no significant electrolyte abnormality. nitrite + Labs: Laboratory Results - last 24 hr 04/27/23 04/27/23 09:37 10:45 WBC 15.6 H RBC 4.32 Hgb 11.5 L Hct 37.0 MCV 85.6 MCH 26.6 L MCHC 31.1 L RDW Std Deviation 50.3 H RDW Coeff of Lucia 16.1 H Plt Count 258 MPV 10.6 Immature Gran % (Auto) 0.400 Neut % (Auto) 91.3 H Lymph % (Auto) 1.6 L [place] % (Auto) 6.0 Eos % (Auto) 0.4 Baso % (Auto) 0.3 Absolute Neuts (auto) 14.2 H Absolute Lymphs (auto) 0.25 L Nucleated RBC % 0 Differential Comment SCANNED Sodium 132 L Potassium 4.9 Chloride 94 L Carbon Dioxide 34.0 H Anion Gap 4 L BUN 30 H Creatinine 0.92 Estim Creat Clear Calc 37.29 Est GFR (MDRD) Af Amer 75 Est GFR (MDRD) Non-Af 62 BUN/Creatinine Ratio 32.4 H Glucose 115 H Calcium 9.1 Total Bilirubin 0.50 AST 37 ALT 35 Alkaline Phosphatase 84 Troponin I High Sens 10 B-Natriuretic Peptide 468.5 H Total Protein 8.2 Albumin 3.3 Globulin 4.9 H Albumin/Globulin Ratio 0.7 L Lipase 40 Urine Color Yellow Urine Clarity Clear Urine pH 7.0 Ur Specific [place] 1.010 Urine Protein 100 H Urine Glucose (UA) Normal Urine Ketones 5 H Urine Occult Blood 10 H Urine Nitrite Positive H Urine Bilirubin Negative Urine Urobilinogen Normal Ur Leukocyte Esterase Negative Urine RBC 0 SEEN Urine WBC 0-5 SEEN Ur Squamous Epith Cells 0 SEEN Urine Bacteria 2+ Urine Mucus 0 SEEN Radiography Chest X-Ray - ED: Read by ED Physician (Chest x-ray shows no acute cardiopulmonary disease, no infiltrate, no effusion) Diagnostic Testing: Clinical Impression(s) from Imaging Studies Chest X-Ray 04/27/23 10:55 IMPRESSION: Emphysema without pneumonia or atelectasis. Electronically Signed: Benjie Joshi MD at 11:15 EDT , EKG Initial EKG: Attestation: I personally reviewed and interpreted this EKG as follows: (EKG interpretation. Normal sinus rhythm at 93 beats a minute. Normal axis deviation. No acute ST elevation, no acute ectopy. QTc of 442) Discharge Plan Triage Chief Complaint: Abd Pain ED Provider: Edwin Bone Dx/Rx/DC Orders Prescriptions: No Action sucralfate 1 gram tablet 1 g PO QACHS Qty: 56 0RF Rx Instructions: Take 1 hour before meals and at bedtime hydroxyzine pamoate 25 mg capsule 25 mg PO QHS multivitamin Tablet 1 tab PO DAILY metoprolol succinate 25 mg Tablet Extended Release 24 Hr 25 mg PO BID cholecalciferol (vitamin D3) [Vitamin D3] 10 mcg (400 unit) Capsule 10 mcg PO DAILY escitalopram oxalate 10 mg Tablet 10 mg PO DAILY Spiriva with HandiHaler 18 mcg capsule, w/inhalation device 18 mcg INHALATION DAILY Patient Comments: INHALE CONTENTS OF 1 CAPSULE VIA HANDIHALER ONCE DAILY pantoprazole 40 mg tablet,delayed release (DR/EC) See Rx Instructions .ROUTE .COMPLEX Qty: 30 3RF Dose Instruction: TAKE 1 TABLET BY MOUTH EVERY DAY Rx Instructions: TAKE 1 TABLET BY MOUTH EVERY DAY Primary Care Provider: Ruth Mcallister Referrals: Ruth Mcallister MD [Primary Care Provider] -
[2023-04-27 11:14] LABS: Bacteria 2+ /hpf (None Seen); White Blood Cells 0-5 SEEN /hpf (0-5)
[2023-04-27] MEDS: Ceftriaxone 1 GM/50 ML BAG IV (11:33)
[2023-04-27] MEDS: 0.9% Normal Saline (1000mL) 1,000 ML 999 ML IV (11:33)
[2023-04-27 11:34] LABS: Differential Comment SCANNED
--- NOTE | 2023-04-27 14:29 | HP.PCM.HOS_ITS ---
HPI - General General Date of Admission: 04/27/23 HPI Narrative TRACI SOW, is a 82 F who presents to the hospital with abdominal pain/flank pain as well as weakness for the last several days. She started feeling a little bit ill 2 to 3 days ago and is slowly progressed. In the ER she was found to have a white count of 15 but she is not tachycardic she is little bit tachypneic but she is on her baseline oxygen of 3 L for history of COPD. Renal function is stable and at baseline, UA was positive for nitrites as well as 2+ bacteria. She did receive a dose of Rocephin in the ER [facility] Medical History (Updated 04/27/23 @ 16:07 by Rhona De Jesus) Anxiety and depression Aortic aneurysm COPD (chronic obstructive pulmonary disease) Depression HTN (hypertension) On home oxygen therapy Pancreatitis Home Medications cholecalciferol (vitamin D3) 10 mcg (400 unit) capsule (Vitamin D3) 10 mcg PO DAILY 02/01/21 [History Last Taken 04/26/23] escitalopram oxalate 10 mg tablet 10 mg PO DAILY 02/01/21 [History Last Taken 04/26/23] metoprolol succinate 25 mg tablet,extended release 24 hr 25 mg PO BID 02/01/21 [History Last Taken 04/26/23] tiotropium bromide 18 mcg capsule with inhalation device (Spiriva with HandiHaler) 18 mcg inhalation DAILY 02/02/21 [History Last Taken 04/27/23] hydroxyzine pamoate 25 mg capsule 25 mg PO BID PRN anxiety 02/05/22 [History Last Taken 04/26/23] Allergy/AdvReac Type Severity Reaction Status Date / Time Corticosteroids Allergy Severe Anaphylaxis Verified 04/27/23 09:26 (Glucocorticoids) [steroids] Surgical History H/O: hysterectomy Hx of heart artery stent Social History Smoking Status: Former smoker ROS Constitutional Constitutional: Reports chills, fever(s) and weakness; Denies fatigue or malaise Eyes Eyes: Denies blurry vision ENT HEENT: Denies headache(s) or nasal discharge Cardiovascular Cardiovascular: Denies chest pain, dyspnea on exertion or syncope Respiratory/Chest Respiratory/Chest: Denies cough, shortness of breath at rest or shortness of breath with exertion Gastrointestinal Gastrointestinal: Reports abdominal pain; Denies constipation, diarrhea, nausea or vomiting Genitourinary Genitourinary: Reports dysuria Musculoskeletal Musculoskeletal: Reports back pain Neurologic Neurologic: Denies focal weakness, numbness or tremor(s) Psychiatric Psychiatric: Denies anxiety or depression Vital Signs Vital Signs Vital Signs: 04/27/23 09:26 04/27/23 11:09 04/27/23 14:07 Temperature 98.6 F Temperature Source Temporal Pulse Rate 99 86 88 Respiratory Rate 18 18 19 H Blood Pressure 170/84 H 149/77 H Blood Pressure Mean 112 101 Pulse Ox 96 95 95 Oxygen Delivery Method Nasal Cannula Nasal Cannula Nasal Cannula Oxygen Flow Rate (L/min) 3 3 3 Weight Weight: 116 lb 2.938 oz Body Mass Index (BMI) 21.2 Physical Exam Narrative General: Alert, Oriented x3, Cooperative, No apparent distress HEENT: Atraumatic, PERRLA, EOMI, Normocephalic Oral: Moist Mucosa Neck: Supple, No JVD Lungs: Diminished, Normal air movement, No rhonchi, No wheeze, No rales Cardiovascular: Regular rate, Regular Rhythm, Normal S1, Normal S2, No murmurs Abdomen: Soft, Non Tender, Non-Distended, No Hepato-splenomegaly Extremities: No edema, Capillary Refill Less than 3 Seconds Skin: No rashes, No breakdown Musculoskeletal: No Tenderness to Palpation of Joints or Extremities Neurological: Moves all extremities, Sensory exam intact to light touch and pain Psych/Mental Status: Flat, anxious Results Lab / Micro Data 04/28/23 06:05 04/27/23 09:37 Labs: Laboratory Results - last 24 hr 04/27/23 09:37: WBC 15.6 H, RBC 4.32, Hgb 11.5 L, Hct 37.0, MCV 85.6, MCH 26.6 L , MCHC 31.1 L, RDW Std Deviation 50.3 H, RDW Coeff of Lucia 16.1 H, Plt Count 258, MPV 10.6, Immature Gran % (Auto) 0.400, Neut % (Auto) 91.3 H, Lymph % (Auto) 1.6 L, [place] % (Auto) 6.0, Eos % (Auto) 0.4, Baso % (Auto) 0.3, Absolute Neuts (auto) 14.2 H, Absolute Lymphs (auto) 0.25 L, Nucleated RBC % 0, Differential Comment SCANNED, Sodium 132 L, Potassium 4.9, Chloride 94 L, Carbon Dioxide 34.0 H, Anion Gap 4 L, BUN 30 H, Creatinine 0.92, Estim Creat Clear Calc 37.29, Est GFR (MDRD) Af Amer 75, Est GFR (MDRD) Non-Af 62, BUN/Creatinine Ratio 32.4 H, Glucose 115 H, Calcium 9.1, Total Bilirubin 0.50, AST 37, ALT 35, Alkaline Phosphatase 84, Troponin I High Sens 10, B-Natriuretic Peptide 468.5 H, Total Protein 8.2, Albumin 3.3, Globulin 4.9 H, Albumin/Globulin Ratio 0.7 L, Lipase 40 04/27/23 10:45: Urine Color Yellow, Urine Clarity Clear, Urine pH 7.0, Ur Specific [place] 1.010, Urine Protein 100 H, Urine Glucose (UA) Normal, Urine Ketones 5 H, Urine Occult Blood 10 H, Urine Nitrite Positive H, Urine Bilirubin Negative, Urine Urobilinogen Normal, Ur Leukocyte Esterase Negative, Urine RBC 0 SEEN, Urine WBC 0-5 SEEN, Ur Squamous Epith Cells 0 SEEN, Urine Bacteria 2+, Urine Mucus 0 SEEN Radiology Impression Chest X-Ray 04/27/23 10:55 IMPRESSION: Emphysema without pneumonia or atelectasis. Electronically Signed: Benjie Joshi MD at 11:15 EDT Reading Location ID and State: [address] [place] [address] Tel , Service support , Assessment & Plan Assessment/Plan (1) UTI (urinary tract infection): PLAN: Plan 1. UTI with debility ? Continue with IV Rocephin ?Her weakness continues, may need to consult PT/OT ? Will allow her to have a regular diet 2. HTN ? Blood pressures are stable ? Continue with metoprolol ? We will monitor make adjustments as necessary 3. Anxiety/depression ? Continue with escitalopram and hydroxyzine ? Stable DVT: Lovenox 65 minutes was spent on direct patient care, including documentation as well as chart review and collaboration with colleagues Charges/Coding Visit Charges Inpatient E&M: 50487 Init Hosp L2
[2023-04-27] MEDS: Ketorolac 15 MG/ML Vial IV (14:32)
[2023-04-27] MEDS: Acetaminophen 325 MG Tablet 650 MG PO (14:32)
[2023-04-27] MEDS: 0.9% Saline Lock 10 ML Syringe IV (20:20)
[2023-04-27] MEDS: Metoprolol(XL)Succ 25 MG Tablet PO (20:20)
[2023-04-28] VITALS (7 sets, daily range): BP systolic 137–189; BP diastolic 82–100; PULSE 67–90; RESP 18–20; TEMP 36.4–37.1; O2SAT 95–98
[2023-04-28] MEDS: Metoprolol(XL)Succ 25 MG Tablet PO ×2 (04:35→20:27)
[2023-04-28 06:53] LABS: Absolute Lymphocyte Count 0.54 X10^3/uL (0.83-4.51); Absolute Neutrophil Count 6.5 X10^3/uL (2.0-7.7); Basophil# 0.02 X10^3/uL; Basophil% 0.2 % (0-1); Eosinophil# 0.25 X10^3/uL; Eosinophils% 3.1 % (0-5); Hematocrit 34.2 % (37-47); Hemoglobin 10.6 g/dL (12.0-15.0); Lymphocyte # 0.54 X10^3/ul (0.83-4.51); Lymphocyte % 6.7 % (19-41); Mean Corpuscular Hgb 26.3 pg (27.0-32.0); Mean Corpuscular Volume 84.9 fL (81-99); Mean Platelet Vol. 10.8 fl (6.2-12.0); Monocyte# 0.79 X10^3/uL; Monocyte% 9.7 % (0-10); NRBC Flagged by Analyzer 0 % (0-5); Neutrophil # 6.49 X10^3/uL (2.7-7.7); Neutrophil % 79.9 % (47-70); POSITIVE DIFFERENTIAL YES; Platelet Count 250 K/mm3 (150-450); RBC Distribution Width CV 16.2 % (11.6-14.6); RBC Distribution Width SD 50.4 fl (35.1-43.9); Red Blood Count 4.03 M/mm3 (4.2-5.4); White Blood Count 8.1 K/mm3 (4.4-11.0)
[2023-04-28 07:04] LABS: Differential Indicated SCAN CRITERIA MET
--- NOTE | 2023-04-28 09:04 | PCM.PN.HOSP ---
Subjective Subjective Feeling stronger today, leukocytosis has resolved Objective Data Objective Data Vital Signs: Vital Signs Temp Pulse Resp BP Pulse Ox O2 Del Method O2 Flow Rate 98.3 F 72 18 186/97 H 98 Nasal Cannula 3 04/28/23 08:13 04/28/23 08:13 04/28/23 08:19 04/28/23 08:13 04/28/23 08:13 04/28/23 08:19 04/28/23 08:19 Oxygen Flow Rate (L/min) 3 Oxygen Delivery Method Nasal Cannula Weight: 113 lb 14.4 oz Body Mass Index (BMI) 21.5 Intake & Output: Intake and Output for Last 24 Hours 04/27/23 04/28/23 04/29/23 03:59 03:59 03:59 Intake Total 1500 / 1500 100 / 100 Output Total 100 / 100 Balance 1400 / 1400 100 / 100 Lab / Micro Data 04/28/23 06:05 04/27/23 09:37 Labs: Laboratory Results - last 24 hr 04/27/23 09:37: WBC 15.6 H, RBC 4.32, Hgb 11.5 L, Hct 37.0, MCV 85.6, MCH 26.6 L, MCHC 31.1 L, RDW Std Deviation 50.3 H, RDW Coeff of Lucia 16.1 H, Plt Count 258, MPV 10.6, Immature Gran % (Auto) 0.400, Neut % (Auto) 91.3 H, Lymph % (Auto) 1.6 L, [place] % (Auto) 6.0, Eos % (Auto) 0.4, Baso % (Auto) 0.3, Absolute Neuts (auto) 14.2 H, Absolute Lymphs (auto) 0.25 L, Nucleated RBC % 0, Differential Comment SCANNED, Sodium 132 L, Potassium 4.9, Chloride 94 L, Carbon Dioxide 34.0 H, Anion Gap 4 L, BUN 30 H, Creatinine 0.92, Estim Creat Clear Calc 37.29, Est GFR (MDRD) Af Amer 75, Est GFR (MDRD) Non-Af 62, BUN/Creatinine Ratio 32.4 H, Glucose 115 H, Calcium 9.1, Total Bilirubin 0.50, AST 37, ALT 35, Alkaline Phosphatase 84, Troponin I High Sens 10, B-Natriuretic Peptide 468.5 H, Total Protein 8.2, Albumin 3.3, Globulin 4.9 H, Albumin/Globulin Ratio 0.7 L, Lipase 40 04/27/23 10:45: Urine Color Yellow, Urine Clarity Clear, Urine pH 7.0, Ur Specific [place] 1.010, Urine Protein 100 H, Urine Glucose (UA) Normal, Urine Ketones 5 H, Urine Occult Blood 10 H, Urine Nitrite Positive H, Urine Bilirubin Negative, Urine Urobilinogen Normal, Ur Leukocyte Esterase Negative, Urine RBC 0 SEEN, Urine WBC 0-5 SEEN, Ur Squamous Epith Cells 0 SEEN, Urine Bacteria 2+, Urine Mucus 0 SEEN 04/28/23 06:05: WBC 8.1, RBC 4.03 L, Hgb 10.6 L, Hct 34.2 L, MCV 84.9, MCH 26.3 L, MCHC 31.0 L, RDW Std Deviation 50.4 H, RDW Coeff of [place] 16.2 H, Plt Count 250, MPV 10.8, Immature Gran % (Auto) 0.400, Neut % (Auto) 79.9 H, Lymph % (Auto) 6.7 L, [place] % (Auto) 9.7, Eos % (Auto) 3.1, Baso % (Auto) 0.2, Absolute Neuts (auto) 6.5, Absolute Lymphs (auto) 0.54 L, Nucleated RBC % 0 Radiography Diagnostic Testing: Radiology Impression Chest X-Ray 04/27/23 10:55 IMPRESSION: Emphysema without pneumonia or atelectasis. Electronically Signed: Benjie Joshi MD at 11:15 EDT , Physical Exam Narrative General: Alert, Oriented x3, Cooperative, No apparent distress HEENT: Atraumatic, PERRLA, EOMI, Normocephalic Oral: Moist Mucosa Neck: Supple, No JVD Lungs: Diminished, Normal air movement, No rhonchi, No wheeze, No rales Cardiovascular: Regular rate, Regular Rhythm, Normal S1, Normal S2, No murmurs Abdomen: Soft, Non Tender, Non-Distended, No Hepato-splenomegaly Extremities: No edema, Capillary Refill Less than 3 Seconds Skin: No rashes, No breakdown Musculoskeletal: No Tenderness to Palpation of Joints or Extremities Neurological: Moves all extremities, Sensory exam intact to light touch and pain Psych/Mental Status: Flat, anxious Assessment & Plan Assessment/Plan (1) UTI (urinary tract infection): PLAN: Plan 1. UTI with debility ? Continue with IV Rocephin ?Her weakness continues, may need to consult PT/OT ? Will allow her to have a regular diet 2. HTN ? Blood pressures are are little bit elevated likely due to anxiety ? Continue with metoprolol ? We will monitor make adjustments as necessary 3. Anxiety/depression ? Continue with escitalopram and hydroxyzine ? Stable DVT: Lovenox Charges/Coding Visit Charges Inpatient E&M: 88850 Subs Hosp L2
[2023-04-28] MEDS: Ceftriaxone 1 GM/50 ML BAG IV (10:37)
[2023-04-28] MEDS: Escitalopram Oxalate 10 MG Tablet PO (10:38)
[2023-04-28] MEDS: Enoxaparin 40 MG/0.4 ML Syringe SC (10:38)
[2023-04-28] MEDS: hydrOXYzine PAM 25 MG Capsule PO (10:38)
[2023-04-28] MEDS: Flu Vacc QS2023-24(65YR UP)/PF 240 MCG/0.7 ML Syringe IM (10:38)
[2023-04-28 11:14] LABS: Anion Gap 5 (5-15); BUN 31 mg/dL (7-18); BUN/Creat Ratio 30.7 RATIO (10-20); Calcium,Total 8.6 mg/dL (8.5-10.1); Chloride 94 mmol/L (98-107); Creatinine, Serum 1.01 mg/dL (0.55-1.02); EST Glomerular Filtration Rate 56 mL/min (>60); Est Glom Filt Rate - Afr Amer 67 mL/min (>60); Estimated Creatinine Clearance 32.41 ml/min; Glucose 104 mg/dL (74-106); Potassium 3.8 mmol/L (3.5-5.1); Sodium Level 132 mmol/L (136-145)
--- NOTE | 2023-04-28 14:57 | CASEMGMT ---
Met with patient to complete HERNÁNDEZ form. HERNÁNDEZ form explained to patient who voiced understanding and signed form. Original form placed in pt?s chart and copy provided to patient.? Margo Fitch, Discharge Planning Asst
--- NOTE | 2023-04-28 15:34 | CASEMGMT ---
Discharge Planning A list of?SNF providers including quality and resource use data and consistent with the patient's preferred geographic region, medical needs, and insurance network was created in [facility] Guide.? This list was provided to the Margo Fitch Discharge Planning Asst.
--- NOTE | 2023-04-28 15:57 | CASEMGMT ---
RN CM in to pt. room to discuss HHC. A list of HHC providers including quality and resource use data and consistent with the patient?s preferred geographic region, medical needs, and insurance network were provided from the [facility] Guide. Pt's first choice is [facility] and her second choice is [facility].
--- NOTE | 2023-04-28 16:21 | CASEMGMT ---
TC to intake at [facility], left message for referral. Will await acceptance.
--- NOTE | 2023-04-28 16:29 | CHAPLAIN ---
Type of Pastoral Visit _x__ Initial Visit ___ Follow-up Visit ___ On-call Visit ___ General Patient Visit ___ Spiritual Assessment ___ Family Conference ___ Bereavement ___ Rapid Response ___ Code Blue ___ Other (describe below) Pastoral Care Referral From _x__ Patient ___ Family ___ Nurse ___ Physician ___ Jewellery Designer ___ Lug Breaker And Wire Puller ___ Other (describe below) Sacrament/Intervention _x__ Active listening ___ Anointing ___ Hindu ___ Bereavement ___ Communion ___ Amanda exploration ___ _x__ Life review _x__ Prayer ___ Reconciliation ___ Sacrament of Sick _x__ Supportive presence ___ Wedding ___ Other (describe below) Pastoral Comments patient is welcoming and states how wonderful and friendly all the staff members have been to her; pt says that she is homebound all the time now and this is really very nice at the hospital; pt identifies as a person of amanda and that she relies on God to meet her in her lonely times at home; pt does have family support in the area; pt states that she spends her extra time in prayer for others; pt would like prayer for her healing and recovery at this time
[2023-04-28] MEDS: Acetaminophen 325 MG Tablet 650 MG PO (19:31)
[2023-04-29 02:15] VITALS: BP 160/90; PULSE 67; RESP 18; TEMP 37.1; O2SAT 95
[2023-04-29 07:17] LABS: Absolute Lymphocyte Count 0.57 X10^3/uL (0.83-4.51); Absolute Neutrophil Count 4.8 X10^3/uL (2.0-7.7); Basophil# 0.04 X10^3/uL; Basophil% 0.6 % (0-1); Eosinophil# 0.55 X10^3/uL; Hemoglobin 10.9 g/dL (12.0-15.0); Lymphocyte # 0.57 X10^3/ul (0.83-4.51); Lymphocyte % 8.3 % (19-41); Mean Corp Hgb Conc 31.1 g/dL (32-36); Mean Corpuscular Hgb 26.3 pg (27.0-32.0); Mean Corpuscular Volume 84.5 fL (81-99); Mean Platelet Vol. 10.3 fl (6.2-12.0); Monocyte# 0.95 X10^3/uL; Monocyte% 13.8 % (0-10); NRBC Flagged by Analyzer 0 % (0-5); Neutrophil # 4.77 X10^3/uL (2.7-7.7); POSITIVE DIFFERENTIAL YES; Platelet Count 251 K/mm3 (150-450); RBC Distribution Width CV 16.1 % (11.6-14.6); RBC Distribution Width SD 49.7 fl (35.1-43.9); Red Blood Count 4.14 M/mm3 (4.2-5.4); White Blood Count 6.9 K/mm3 (4.4-11.0)
[2023-04-29 07:37] LABS: Differential Indicated SCAN CRITERIA MET
[2023-04-29 07:53] LABS: Anion Gap 3 (5-15); BUN 26 mg/dL (7-18); BUN/Creat Ratio 30.1 RATIO (10-20); Calcium,Total 8.6 mg/dL (8.5-10.1); Chloride 97 mmol/L (98-107); Creatinine, Serum 0.86 mg/dL (0.55-1.02); EST Glomerular Filtration Rate 67 mL/min (>60); Est Glom Filt Rate - Afr Amer 81 mL/min (>60); Estimated Creatinine Clearance 38.06 ml/min; Glucose 80 mg/dL (74-106); Potassium 4.4 mmol/L (3.5-5.1); Sodium Level 133 mmol/L (136-145)
[2023-04-29] MEDS: hydrOXYzine PAM 25 MG Capsule PO (08:47)
[2023-04-29 08:48] VITALS: BP 135/85; PULSE 82
[2023-04-29] MEDS: Metoprolol(XL)Succ 25 MG Tablet PO (08:48)
[2023-04-29] MEDS: Enoxaparin 40 MG/0.4 ML Syringe SC (08:48)
[2023-04-29] MEDS: Escitalopram Oxalate 10 MG Tablet PO (08:48)
[2023-04-29] MEDS: Ceftriaxone 1 GM/50 ML BAG IV (08:51)
--- NOTE | 2023-04-29 09:23 | PCM.DC.SUM ---
Providers Date of Admission: 04/27/23 Date of Discharge: 04/29/23 Primary Care Physician: Dr. Ruth Mcallister MD Reason For Visit: WEAKNESS AND UTI Diagnosis Discharge Diagnosis (1) UTI (urinary tract infection): Status: Acute Code(s): N39.0 - Urinary tract infection, site not specified Medications at Discharge Home Medications cholecalciferol (vitamin D3) 10 mcg (400 unit) capsule (Vitamin D3) 10 mcg PO DAILY 02/01/21 escitalopram oxalate 10 mg tablet 10 mg PO DAILY 02/01/21 metoprolol succinate 25 mg tablet,extended release 24 hr 25 mg PO BID 02/01/21 tiotropium bromide 18 mcg capsule with inhalation device (Spiriva with HandiHaler) 18 mcg inhalation DAILY 02/02/21 hydroxyzine pamoate 25 mg capsule 25 mg PO BID PRN anxiety 02/05/22 cefdinir 300 mg capsule 300 mg PO BID #10 caps 04/29/23 Hospital Course Summary of Care Provided Minutes Spent on Discharge: 35 Hospital Course: Patient is an 82-year-old lady who presented with progressive generalized weakness diagnosed with acute cystitis 1. Acute cystitis with E. coli ? Admitted to regular nursing floor started on Rocephin culture sent came back positive for E. coli discharged on cefdinir 2. Hypertension - Blood pressure controlled, home medications continued with dose adjustment as needed 3. Depression with anxiety ? Patient is on escitalopram as well as hydroxyzine did continue 4. Physical deconditioning - Requested for PT OT eval and social science analyst to assist with discharge planning 5. DVT prophylaxis - On enoxaparin Physical Exam Narrative GENERAL: cooperative HEENT: Atraumatic; normocephalic EYES; Anicteric, Normal Conjunctiva NECK; supple, normal thyroid, RESPIRATORY: Diminished to auscultation CARDIOVASCULAR: Regular S1 S2, GI: soft, normoactive bowel sounds, : No Renal angle tenderness; EXTREMITIES: No edema, no clubbing, MUSCULOSKELETAL: no muscle wasting NEURO: Awake; no lateralizing signs. SKIN: No Rash PSYCH; Flat affect Weight / BMI Weight Weight: 51.664 kg Body Mass Index (BMI) 21.5 ABG / Lab / Microbiology Data 04/29/23 06:18 04/29/23 06:18 Laboratory: Laboratory Results - last 24 hr 04/28/23 06:05: Sodium 132 L, Potassium 3.8, Chloride 94 L, Carbon Dioxide 33.0 H, Anion Gap 5, BUN 31 H, Creatinine 1.01, Estim Creat Clear Calc 32.41, Est GFR (MDRD) Af Amer 67, Est GFR (MDRD) Non-Af 56 L, BUN/Creatinine Ratio 30.7 H, Glucose 104, Calcium 8.6 04/29/23 06:18: WBC 6.9, RBC 4.14 L, Hgb 10.9 L, Hct 35.0 L, MCV 84.5, MCH 26.3 L, MCHC 31.1 L, RDW Std Deviation 49.7 H, RDW Coeff of Lucia 16.1 H, Plt Count 251, MPV 10.3, Immature Gran % (Auto) 0.300, Neut % (Auto) 69.0, Lymph % (Auto) 8.3 L, [place] % (Auto) 13.8 H, Eos % (Auto) 8.0 H, Baso % (Auto) 0.6, Absolute Neuts (auto) 4.8, Absolute Lymphs (auto) 0.57 L, Nucleated RBC % 0, Differential Comment COMMENT, Sodium 133 L, Potassium 4.4, Chloride 97 L, Carbon Dioxide 33.0 H, Anion Gap 3 L, BUN 26 H, Creatinine 0.86, Estim Creat Clear Calc 38.06, Est GFR (MDRD) Af Amer 81, Est GFR (MDRD) Non-Af 67, BUN/Creatinine Ratio 30.1 H, Glucose 80, Calcium 8.6 D/C Instructions Discharge Diet: No restrictions Discharge Activity: Return to Normal Activity Call your doctor if you observe: Fever of 101 or Higher, Shortness of breath, Fainting spells and Chest pain Meaningful Use Info Meaningful Use Diagnoses (Choose all that apply): None applicable Discharge Plan Admission Admit Date/Time: 04/27/23 14:30 Attending Provider: Daniel Tan Primary Care Provider: Ruth Mcallister Consulting Providers: Eris Garsia Discharge Orders/Prescriptions Prescriptions: New cefdinir 300 mg capsule 300 mg PO BID Qty: 10 0RF Continued hydroxyzine pamoate 25 mg capsule 25 mg PO BID PRN metoprolol succinate 25 mg Tablet Extended Release 24 Hr 25 mg PO BID cholecalciferol (vitamin D3) [Vitamin D3] 10 mcg (400 unit) Capsule 10 mcg PO DAILY escitalopram oxalate 10 mg Tablet 10 mg PO DAILY tiotropium bromide [Spiriva with HandiHaler] 18 mcg capsule, w/inhalation device 18 mcg INHALATION DAILY Patient Comments: INHALE CONTENTS OF 1 CAPSULE VIA HANDIHALER ONCE DAILY Referrals / Follow Up: Ruth Mcallister MD [Primary Care Provider] - Within 1 Week Disposition Disposition (needs filled in before D/C Order can be placed): Home, Self Care Charges/Coding Visit Charges Inpatient E&M: 50259 Disch Hosp >30min
[2023-04-29 09:44] VITALS: BP 125/76; PULSE 74; RESP 12; TEMP 36.9; O2SAT 100
--- NOTE | 2023-04-29 10:12 | CASEMGMT ---
PRISCA MCGRATH called [facility] intake to follow-up on referral for C. No answer so PRISCA MCGRATH LVM for them asking to return the call.
--- NOTE | 2023-04-29 10:16 | CASEMGMT ---
Received message from Selma at [facility], they can accept pt for SOC tomorrow.
--- NOTE | 2023-04-29 10:35 | CASEMGMT ---
PRISCA MCGRATH informed that [facility] can accept pt. for HHC with a strat date of tomorrow. PRISCA MCGRATH placed order for HHC. Pt. has order in for D/C. PRISCA MCGRATH in to pt. room to discuss needs at discharge. PRISCA MCGRATH informed pt. that [facility] has accepted her for HHC PT/OT with a start date of 04/30/2023. Pt. states she has a walker at home that she will use and her son will help her today as well. Pt. states she is at her baseline for oxygen at 3lpm continuous and states her DME company is [employer]. Pt. denies having any additional questions/concerns at this time. PRISCA MCGRATH verified oxygen through [employer] who states pt's DME company is [employer] at 3lpm continuous.
[2023-04-29 12:43] VITALS: BP 156/84; PULSE 79; RESP 18; TEMP 37; O2SAT 98
== END 2023-04-29 12:50 | disposition home health service (06) ==
LOC: ED 14:37 → MS3 14:52
PROVIDERS: Admitting Provider Family Medicine; Emergency Provider Emergency Medicine; PCP Internal Medicine; Visit Provider Internal Medicine
DX: N30.00 Acute cystitis without hematuria (principal); J43.9 Emphysema, unspecified; F41.8 Other specified anxiety disorders; B96.20 Unspecified Escherichia coli [E. coli] as the cause of diseases classified elsewhere; Z87.891 Personal history of nicotine dependence; I10 Essential (primary) hypertension; Z79.899 Other long term (current) drug therapy; Z99.81 Dependence on supplemental oxygen; Z23 Encounter for immunization
CPT/HCPCS: 36415; 71045; 80048; 80053; 81001; 83690; 83880; 84484; 85025; 93005; 96361; 96365; 96366; 96372; 96375; 97162; 97166; 99221; 99285; J7030; J7050; 90662; A4216; G0378

== ENCOUNTER 2023-10-03 21:29 | Emergency (ER) | payer MEDICARE, SELFPAY ==
[2023-10-03] VITALS (13 sets, daily range): BP systolic 173–191; BP diastolic 82–116; PULSE 101–121; RESP 11–21; TEMP 36.7–36.9; O2SAT 91–100; BMI 22.6
--- NOTE | 2023-10-03 22:39 | CT_ITS ---
We are attempting to reach an attending provider to discuss findings. An addendum with communication details will be sent when the communication is complete. INDICATION: fall and ms change EXAMINATION: CT Head or Brain W/O Contrast Injection TECHNIQUE: Multiple axial images were obtained of the head without intravenous contrast. A radiation dose optimization technique was used for this scan. IV Contrast dosage and agent: None. COMPARISON: None FINDINGS: BRAIN PARENCHYMA: Parenchymal hemorrhage at anterior left basal ganglia and caudate nucleus measures up to 3.3 cm maximum axial diameter. There is breakthrough intraventricular hemorrhage with moderate amount of intraventricular hemorrhage. No evidence of acute major territorial infarct. Mild regional mass effect surrounding left basal ganglia hemorrhage but no significant midline shift. Moderate bilateral deep and subcortical cerebral white matter lucencies. Chronic cerebral involutional changes. CSF SPACES: Prominent cerebral sulci and extraaxial spaces secondary to involutional changes. Intraventricular hemorrhage again noted but no significant ventricular dilatation. Basal cisterns are patent. CALVARIUM, SKULL BASE, PARANASAL SINUSES AND MASTOID AIR CELLS: Calvarium is intact. No acute findings within imaged paranasal sinuses. Mastoid air cells are well-pneumatized. ORBITS: Postop cataract surgery bilaterally. CT/Brain/Head without Contrast IMPRESSION: 1. 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 2. Cerebral atrophy and chronic small vessel ischemic changes. Electronically Signed: Kirk Marroquin MD at 23:46 EDT ,
--- NOTE | 2023-10-03 22:41 | EDS_ITS ---
HPI HPI - Fall History of Present Illness Chief Complaint: Fall Informant: patient Occured/Mechanism Occurred: Today and Hours Mechanism/Context: Yes cannot recall fall Usually ambulates: Without assistance Pain/Injury Pain Location: none Associated Symptoms Associated Symptoms: Positive for Weakness; Negative for Parasthesias, Loss of function, Inability to ambulate, Loss of consciousness or Amnesia Narrative Narrative: 83-year-old female history of COPD on 3 and half liters oxygen at home, hypertension. Had a UTI and was admitted in April but no more recent admission. Has been in her normal state of health. She lives across the [address] from her daughter. When they did not hear from her tonight they saw her earlier in the evening they went over and checked on her she was on the floor had fallen. She does not remember the fall. Denies hitting her head. Denies any recent illness. They believe she may have been on the floor about 2 hours. She denies any head injury or neck pain. She denies any chest or abdominal pain. She denies any hip pain. Prior similar symptoms: No Recent Illness/Hospitalization: No PFSH [facility] Medical History Anxiety and depression Aortic aneurysm COPD (chronic obstructive pulmonary disease) Depression HTN (hypertension) On home oxygen therapy Pancreatitis Home Medications cholecalciferol (vitamin D3) 10 mcg (400 unit) capsule (Vitamin D3) 10 mcg PO DAILY 02/01/21 [History Last Taken 04/26/23] escitalopram oxalate 10 mg tablet 10 mg PO DAILY 02/01/21 [History Last Taken 04/26/23] metoprolol succinate 25 mg tablet,extended release 24 hr 25 mg PO BID 02/01/21 [History Last Taken 04/26/23] tiotropium bromide 18 mcg capsule with inhalation device (Spiriva with HandiHaler) 18 mcg inhalation DAILY 02/02/21 [History Last Taken 04/27/23] hydroxyzine pamoate 25 mg capsule 25 mg PO BID PRN anxiety 02/05/22 [History Last Taken 04/26/23] cefdinir 300 mg capsule 300 mg PO BID #10 caps 04/29/23 [Rx Last Taken Unknown] Allergy/AdvReac Type Severity Reaction Status Date / Time Corticosteroids Allergy Severe Anaphylaxis Verified 10/03/23 22:34 (Glucocorticoids) [steroids] Surgical History H/O: hysterectomy Hx of heart artery stent Social History Smoking Status: Former smoker ROS ROS ED ROS Narrative Denies recent illness. Review of Systems ROS Unobtainable: Denies due to encephalopathy Constitutional Constitutional ED: Denies chills or fever(s) Eyes Eyes: Denies blurry vision ENT ENT ED: Denies ear pain Cardiovascular Cardiovascular: Denies chest pain Respiratory/Chest Respiratory/Chest: Denies cough or dyspnea Gastrointestinal Gastrointestinal: Denies abdominal pain Genitourinary Genitourinary ED: Denies dysuria or hematuria Musculoskeletal Musculoskeletal: Denies arthralgias or back pain Integumentary Denies abscess or Abrasions Neurologic Neurologic: Denies headache(s) Psychiatric Psychiatric: Denies anxiety or depression Endocrine Endocrinology: Denies polydipsia or polyphagia Hematologic/Lymphatic Hematologic/Lymphatic: Denies easy bleeding Allergic/Immunologic Allergic/Immunologic ED: Denies mouth swelling or urticaria EXAM Physical Exam Narrative Exam Narrative: 83-year-old female sitting upright in bed. Vital signs are stable and afebrile. Pulse ox is on 6 L she is normally on 3-1/2 her pulse ox is 97% on O2. She does not look septic or toxic. She is no distress. Daughter is at bedside. HEENT exam pupils round reactive light. Moist weeks membranes. No trauma to her face or scalp nontender no hematoma. C-spine nontender. Trachea midline. Lungs clear to auscultation bilaterally. Heart tachycardic 110 no murmur. Chest wall and ribs nontender. Abdomen soft nontender. Back nontender. No signs of trauma. Pelvic girdle intact. No shortening or rotation of either hip. They are nontender. Moving all 4 extremities. She can lift both arms. They are nontender. She has lay up operator strength bilaterally. She has weakness in her lower extremities. 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 She is awake and alert. She is answering questions following commands. Normal voice. No facial droop. Const Vital Signs: 10/03/23 21:32 10/03/23 21:43 10/03/23 21:43 Temperature 98.4 F 98.4 F 98.4 F Temperature Source Oral Oral Oral Pulse Rate 111 H 111 H 112 H Respiratory Rate 18 16 19 H Respiratory Effort Respiratory Depth Respiratory Pattern Blood Pressure 191/106 H 191/106 H 191/106 H Blood Pressure Mean 134 134 134 Pulse Ox 97 97 97 Oxygen Delivery Method Nasal Cannula Nasal Cannula Nasal Cannula Oxygen Flow Rate (L/min) 6 6 6 10/03/23 21:43 10/03/23 22:29 10/03/23 23:30 Temperature 98.1 F Temperature Source Oral Pulse Rate 102 H Respiratory Rate 17 Respiratory Effort Normal Respiratory Depth Normal Respiratory Pattern Normal Blood Pressure 181/92 H Blood Pressure Mean 121 Pulse Ox Oxygen Delivery Method Nasal Cannula Nasal Cannula Nasal Cannula Oxygen Flow Rate (L/min) 6 6 6 10/03/23 23:36 Temperature Temperature Source Pulse Rate 103 H Respiratory Rate 14 Respiratory Effort Respiratory Depth Respiratory Pattern Blood Pressure Blood Pressure Mean Pulse Ox Oxygen Delivery Method Oxygen Flow Rate (L/min) Positive well nourished and well developed; Negative for obese, cachectic, contractures or unkempt General Appearance ED: well developed and NAD; Negative for unkempt, cachectic or contractures Nutritional Appearance: Negative for cachectic or obese HEENT Reports normocephalic atraumatic; Negative for trauma, contusion, hematoma or tenderness Eyes PERRL and EOMs intact bilaterally General Eye ED: Negative for pale conjunctiva or scleral icterus Neck full ROM, no lymphadenopathy and supple General: Negative for tenderness Chest Wall inspection of chest normal and palpation of chest normal Chest: Negative for other Resp normal respiratory effort, no retractions and clear to auscultation bilaterally Effort and Inspection: Negative for pain with movement Auscultation: Negative for rales, rhonchi or wheezes Cardio regular rhythm, S1 normal heart sound, S2 normal heart sound and no murmurs; Negative for regular rate Rate: tachycardic Rhythm: Negative for abnormal rhythm Bruits: Negative for other GI non-tender, non-distended and no masses Inspection: Negative for abdominal distention Palpation: soft; Negative for guarding or rebound tenderness present Back/Spine no CVA tenderness General Back: Negative for CVA tenderness Cervical Spine: Negative for cervical spine tenderness Lumbar Spine / Lower Back: Negative for lumbar spinal tenderness Neuro oriented x3 and CN's II-XII intact bilaterally Neuro Narrative: Weakness bilateral lower extremities. Chronic in the left. Sensorium / Orientation: alert, oriented to person, oriented to place, orientation impaired and confused; Negative for lethargic or stuporous Motor Exam: strength abnormal; Negative for strength 5/5 throughout Psych mental status grossly normal and thought process normal Appearance: Negative for unkempt Attitude: No agitated Mood & Affect: Negative for depressed or anxious Skin General Skin Exam: Negative for other Lesions: no lesions Rashes: no rashes Trauma: Negative for abrasion or laceration MDM MDM MDM Narrative Medical decision making narrative: 83-year-old female fell at home found down and laid on the floor about 2 hours. No apparent injuries. Mental status change. CT and labs. May be UTI versus other etiologies. At 11:15 PM CAT scan shows a large intracranial intraventricular bleed. I discussed this at length with the daughter and her at bedside. They are deciding on how aggressive they want to be for treatment. Family does want neurosurgical evaluation. They understand we do not have at this facility. They requested a clean clinic facility if possible. I have already spoken to the neurosurgeon and transfer line at [facility]. Patient will be sent there. We are starting hemorrhagic stroke protocol and patient may receive antihypertensive meds. Repeat exam at 1155 patient is awake. She is alert. She understands that she has an intracranial bleed. She is answering questions and following commands. She can lay up operator her right hand. She can dorsi and plantarflex her right leg but it is weak. She has some mild confusion. Her NIH is 4. Normal speech. No facial droop. Weakness right arm and leg. Ataxia. Drift. Mild confusion. History & Record Review Discussion w/independent historian: EMS personnel, Patient and Family Additional record(s) reviewed:: Prior inpatient record, Prior outpatient record, Prior ED visit and Prior labs Lab Data Attestation: I reviewed the patient's lab results. Lab results narrative: Electrolytes show sodium 126. Gap 7. BUN 25 creatinine 0.9. Glucose 177. LFTs unremarkable. CBC shows a white count 13.7. H&H 11.1 and 35. Platelets 275. Labs: Laboratory Results - last 24 hr 10/03/23 21:45 WBC 13.7 H RBC 4.23 Hgb 11.1 L Hct 35.3 L MCV 83.5 MCH 26.2 L MCHC 31.4 L RDW Std Deviation 48.2 H RDW Coeff of Lucia 16.0 H Plt Count 275 MPV 11.1 Immature Gran % (Auto) 0.600 Neut % (Auto) 92.6 H Lymph % (Auto) 2.4 L [place] % (Auto) 4.1 Eos % (Auto) 0.1 Baso % (Auto) 0.2 Absolute Neuts (auto) 12.7 H Absolute Lymphs (auto) 0.33 L Nucleated RBC % 0 Sodium 126 L Potassium 4.9 Chloride 89 L Carbon Dioxide 30.0 Anion Gap 7 BUN 25 H Creatinine 0.96 Estim Creat Clear Calc 33.51 Est GFR (MDRD) Af Amer 71 Est GFR (MDRD) Non-Af 59 L BUN/Creatinine Ratio 25.9 H Glucose 177 H Lactic Acid 1.9 Calcium 9.2 Total Bilirubin 0.50 AST 24 ALT 18 Alkaline Phosphatase 72 Troponin I High Sens 33 Total Protein 8.4 H Albumin 3.3 Globulin 5.1 H Albumin/Globulin Ratio 0.6 L Radiography Chest X-Ray - ED: 1 View, Read by ED Physician, Heart, Lungs, Bony Structures, No Acute Disease and Chronic Changes Diagnostic Testing: Clinical Impression(s) from Imaging Studies Brain CT 10/03/23 22:39 IMPRESSION: 1. 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 2. Cerebral atrophy and chronic small vessel ischemic changes. Electronically Signed: Kirk Marroquin MD at 23:46 EDT , Chest x-ray, portable, single view shows no acute process. Interpreted by myself. Normal cardiac silhouette. Chronic changes consistent with COPD. No fractures noted. No pneumothorax. No pneumonia. Rhythm Strip Rhythm Strip: Sinus Tach Rate: 107 Ectopy: None EKG Initial EKG: Attestation: I personally reviewed and interpreted this EKG as follows: Interpretation: Sinus Rhythm and Sinus Tachycardia Comments: Sinus tachycardia rate of 107 no acute signs of NH or ischemia. Nonspecific ST-T wave abnormalities. Critical Care Time Critical Care Time: Yes Critical care time (excluding procedures): 30-74 minutes, Including time spent:, Discussing w/Patient &/or Family/Heating And Air Conditioning Mechanic, Discussing w/Consultants, Arranging Admission or Transfer, Performing Direct Patient Care at Bedside and - (40 min) Discharge Plan Dx/Rx/DC Orders Clinical Impression: Weakness, Fall, History of COPD, Altered level of consciousness, Hemorrhagic stroke, History of hypertension, Intracranial bleed, Acute hyponatremia Disposition Disposition: Acute Care Hospital [facility]
[2023-10-03 22:50] LABS: Absolute Lymphocyte Count 0.33 X10^3/uL (0.83-4.51); Absolute Neutrophil Count 12.7 X10^3/uL (2.0-7.7); Basophil# 0.03 X10^3/uL; Basophil% 0.2 % (0-1); Eosinophil# 0.01 X10^3/uL; Eosinophils% 0.1 % (0-5); Hematocrit 35.3 % (37-47); Hemoglobin 11.1 g/dL (12.0-15.0); Lymphocyte # 0.33 X10^3/ul (0.83-4.51); Lymphocyte % 2.4 % (19-41); Mean Corp Hgb Conc 31.4 g/dL (32-36); Mean Corpuscular Hgb 26.2 pg (27.0-32.0); Mean Corpuscular Volume 83.5 fL (81-99); Mean Platelet Vol. 11.1 fl (6.2-12.0); Monocyte# 0.56 X10^3/uL; Monocyte% 4.1 % (0-10); NRBC Flagged by Analyzer 0 % (0-5); Neutrophil # 12.67 X10^3/uL (2.7-7.7); Neutrophil % 92.6 % (47-70); POSITIVE DIFFERENTIAL YES; Platelet Count 275 K/mm3 (150-450); RBC Distribution Width SD 48.2 fl (35.1-43.9); Red Blood Count 4.23 M/mm3 (4.2-5.4); White Blood Count 13.7 K/mm3 (4.4-11.0)
--- NOTE | 2023-10-03 22:55 | RAD_ITS ---
INDICATION: weakness EXAMINATION/TECHNIQUE: X-RAY - AP view of chest COMPARISON: None FINDINGS: LINES/DEVICES: None. LUNGS: Slightly hyperexpanded lungs with flattened diaphragms. Small linear scarlike opacity left lung base. No focal airspace consolidation. No sizable pleural effusion. No detectable pneumothorax. MEDIASTINUM AND CARDIOVASCULAR STRUCTURES: Heart size within normal limits for imaging technique. Atherosclerotic calcifications along aorta. BONES AND SOFT TISSUES: Skeletal degenerative changes. Metallic stent within upper abdomen. RAD/Chest 1 View (Portable) IMPRESSION: COPD and atherosclerotic disease Electronically Signed: Kirk Marroquin MD at 0:14 EDT ,
[2023-10-03 23:12] LABS: ALB/GLOB Ratio 0.6 RATIO (0.9-2.4); AST(SGOT) 24 U/L (15-37); Alanine Aminotransfer ALT/SGPT 18 U/L (13-56); Albumin, Serum 3.3 g/dL (3.2-5.0); Alkaline Phosphatase 72 U/L (45-117); Anion Gap 7 (5-15); BUN 25 mg/dL (7-18); BUN/Creat Ratio 25.9 RATIO (10-20); Calcium,Total 9.2 mg/dL (8.5-10.1); Chloride 89 mmol/L (98-107); Creatinine, Serum 0.96 mg/dL (0.55-1.02); EST Glomerular Filtration Rate 59 mL/min (>60); Est Glom Filt Rate - Afr Amer 71 mL/min (>60); Estimated Creatinine Clearance 33.51 ml/min; Globulin 5.1 g/dL (2.2-4.2); Glucose 177 mg/dL (74-106); Potassium 4.9 mmol/L (3.5-5.1); Protein, Total 8.4 g/dL (6.4-8.2); Sodium Level 126 mmol/L (136-145); Troponin-I HS 33 pg/mL (3.0-54.0)
[2023-10-03 23:19] LABS: Lactic Acid 1.9 mmol/L (0.4-1.9)
[2023-10-04 00:12] VITALS: BP 198/120; PULSE 102; RESP 18; O2SAT 100
[2023-10-04] MEDS: Nicardipine HCl-0.9% Sod Chlor 20 MG/200 ML IV.SOLN 50 MG IV (00:12)
[2023-10-04 00:30] VITALS: BP 161/99; PULSE 107; RESP 18; O2SAT 100
[2023-10-04 00:34] LABS: Bacteria 0 SEEN /hpf (None Seen); Mucous, Urine 0 SEEN /hpf (<or=2+); Red Blood Cells-Urine 0 SEEN /hpf (0-5); Squamous Epithelial Cells - UA 0 SEEN /hpf (5-10); White Blood Cells 0 SEEN /hpf (0-5)
[2023-10-04 00:36] LABS: Color, Urine Yellow (Yellow); Glucose, Dipstick Normal (Normal); Ketone-Dipstick 15 mg/dl (Negative); Leukocyte Esterase-Dipstick Negative /ul (Negative); Nitrite-Dipstick Negative (Negative); Occult Blood-Urine 25 /ul (Negative); Protein-Dipstick 100 mg/dl (Negative); Specific Gravity, Urine 1.015 (1.002-1.030); Urine Bilirubin Dipstick Negative (Negative); Urine Clarity Clear (Clear); Urine Urobilinogen Normal (Normal); Urine pH 6.5 (5.0 - 8.0)
[2023-10-04 01:13] VITALS: BP 125/76; PULSE 100; RESP 16; TEMP 36.6; O2SAT 100
== END 2023-10-04 01:15 | disposition short-term general hospital (02) ==
PROVIDERS: Emergency Provider Emergency Medicine; PCP Internal Medicine; Visit Provider Emergency Medicine
DX: I63.9 Cerebral infarction, unspecified (principal); J44.9 Chronic obstructive pulmonary disease, unspecified; I62.9 Nontraumatic intracranial hemorrhage, unspecified; R53.1 Weakness; R41.82 Altered mental status, unspecified; R27.0 Ataxia, unspecified; R29.898 Other symptoms and signs involving the musculoskeletal system; I10 Essential (primary) hypertension; Z87.891 Personal history of nicotine dependence; G31.9 Degenerative disease of nervous system, unspecified; E87.1 Hypo-osmolality and hyponatremia; R29.704 NIHSS score 4; W19.XXXA Unspecified fall, initial encounter; Z99.81 Dependence on supplemental oxygen
CPT/HCPCS: 70450; 71045; 80053; 81001; 83605; 84484; 85025; 93005; 96365; 99285; P9612; A4216

== ENCOUNTER → 2023-12-11 | Outpatient (REF) | payer MEDICARE, SELFPAY ==
[2023-12-11 08:20] LABS: Hematocrit 28.7 % (37-47); Hemoglobin 8.8 g/dL (12.0-15.0); Mean Corp Hgb Conc 30.7 g/dL (32-36); Mean Corpuscular Hgb 26.6 pg (27.0-32.0); Mean Corpuscular Volume 86.7 fL (81-99); Mean Platelet Vol. 10.1 fl (6.2-12.0); Platelet Count 261 K/mm3 (150-450); RBC Distribution Width CV 16.2 % (11.6-14.6); RBC Distribution Width SD 51.1 fl (35.1-43.9); Red Blood Count 3.31 M/mm3 (4.2-5.4); White Blood Count 6.8 K/mm3 (4.4-11.0)
[2023-12-11 10:22] LABS: Anion Gap 5 (5-15); BUN 24 mg/dL (7-18); BUN/Creat Ratio 28.5 RATIO (10-20); Calcium,Total 9.1 mg/dL (8.5-10.1); Chloride 100 mmol/L (98-107); Creatinine, Serum 0.84 mg/dL (0.55-1.02); EST Glomerular Filtration Rate 69 mL/min (>60); Est Glom Filt Rate - Afr Amer 83 mL/min (>60); Glucose 91 mg/dL (74-106); Potassium 4.6 mmol/L (3.5-5.1); Sodium Level 135 mmol/L (136-145)
== END ==
LOC: OLS.WCC 05:57
PROVIDERS: PCP Internal Medicine; Referring Provider Family Medicine; Visit Provider Family Medicine
DX: D64.9 Anemia, unspecified (principal); J44.9 Chronic obstructive pulmonary disease, unspecified; I10 Essential (primary) hypertension; Z79.899 Other long term (current) drug therapy
CPT/HCPCS: 36415; 80048; 85027

== ENCOUNTER → 2024-01-12 | Outpatient (REF) | payer MEDICARE, SELFPAY ==
[2024-01-12 08:13] LABS: Hematocrit 27.4 % (37-47); Hemoglobin 8.4 g/dL (12.0-15.0); Mean Corp Hgb Conc 30.7 g/dL (32-36); Mean Corpuscular Hgb 26.3 pg (27.0-32.0); Mean Corpuscular Volume 85.9 fL (81-99); Mean Platelet Vol. 10.9 fl (6.2-12.0); Platelet Count 249 K/mm3 (150-450); RBC Distribution Width CV 16.4 % (11.6-14.6); RBC Distribution Width SD 51.2 fl (35.1-43.9); Red Blood Count 3.19 M/mm3 (4.2-5.4); White Blood Count 6.5 K/mm3 (4.4-11.0)
[2024-01-12 08:42] LABS: Anion Gap 5 (5-15); BUN 22 mg/dL (7-18); BUN/Creat Ratio 26.8 RATIO (10-20); Chloride 99 mmol/L (98-107); Creatinine, Serum 0.82 mg/dL (0.55-1.02); EST Glomerular Filtration Rate 71 mL/min (>60); Est Glom Filt Rate - Afr Amer 85 mL/min (>60); Glucose 78 mg/dL (74-106); Potassium 4.4 mmol/L (3.5-5.1); Sodium Level 135 mmol/L (136-145)
== END ==
LOC: OLS.WCC 04:00
PROVIDERS: PCP Internal Medicine; Visit Provider Family Medicine
DX: J44.9 Chronic obstructive pulmonary disease, unspecified (principal); Z79.899 Other long term (current) drug therapy
CPT/HCPCS: 36415; 80048; 85027

== ENCOUNTER → 2024-02-09 | Outpatient (REF) | payer MEDICARE, SELFPAY ==
[2024-02-09 08:31] LABS: Hematocrit 31.7 % (37-47); Hemoglobin 9.5 g/dL (12.0-15.0); Mean Corpuscular Hgb 25.7 pg (27.0-32.0); Mean Corpuscular Volume 85.9 fL (81-99); Mean Platelet Vol. 10.8 fl (6.2-12.0); Platelet Count 261 K/mm3 (150-450); RBC Distribution Width SD 50.7 fl (35.1-43.9); Red Blood Count 3.69 M/mm3 (4.2-5.4); White Blood Count 7.2 K/mm3 (4.4-11.0)
[2024-02-09 10:02] LABS: Anion Gap 5 (5-15); BUN 21 mg/dL (7-18); BUN/Creat Ratio 23.5 RATIO (10-20); Calcium,Total 9.5 mg/dL (8.5-10.1); Chloride 97 mmol/L (98-107); Creatinine, Serum 0.89 mg/dL (0.55-1.02); EST Glomerular Filtration Rate 64 mL/min (>60); Est Glom Filt Rate - Afr Amer 77 mL/min (>60); Glucose 87 mg/dL (74-106); Potassium 4.3 mmol/L (3.5-5.1); Sodium Level 133 mmol/L (136-145)
== END ==
LOC: OLS.WCC 05:00
PROVIDERS: PCP Internal Medicine; Visit Provider Family Medicine
DX: D64.9 Anemia, unspecified (principal); J44.9 Chronic obstructive pulmonary disease, unspecified; I10 Essential (primary) hypertension; Z79.899 Other long term (current) drug therapy
CPT/HCPCS: 36415; 80048; 85027

== ENCOUNTER → 2024-02-13 | Outpatient (REF) | payer MEDICARE, SELFPAY ==
[2024-02-13 07:35] LABS: Anion Gap 4 (5-15); BUN 23 mg/dL (7-18); BUN/Creat Ratio 29.3 RATIO (10-20); Calcium,Total 8.6 mg/dL (8.5-10.1); Chloride 98 mmol/L (98-107); Creatinine, Serum 0.78 mg/dL (0.55-1.02); EST Glomerular Filtration Rate 74 mL/min (>60); Est Glom Filt Rate - Afr Amer 90 mL/min (>60); Glucose 81 mg/dL (74-106); Potassium 4.4 mmol/L (3.5-5.1); Sodium Level 132 mmol/L (136-145)
[2024-02-13 07:36] LABS: Hemoglobin 9.4 g/dL (12.0-15.0); Mean Corp Hgb Conc 31.3 g/dL (32-36); Mean Corpuscular Hgb 26.4 pg (27.0-32.0); Mean Corpuscular Volume 84.3 fL (81-99); Mean Platelet Vol. 11.5 fl (6.2-12.0); Platelet Count 229 K/mm3 (150-450); RBC Distribution Width CV 15.9 % (11.6-14.6); RBC Distribution Width SD 48.6 fl (35.1-43.9); Red Blood Count 3.56 M/mm3 (4.2-5.4)
== END ==
LOC: OLS.WCC 05:00
PROVIDERS: PCP Internal Medicine; Visit Provider Family Medicine
DX: E87.1 Hypo-osmolality and hyponatremia (principal); G93.40 Encephalopathy, unspecified; I69.191 Dysphagia following nontraumatic intracerebral hemorrhage
CPT/HCPCS: 36415; 80048; 85027

== ENCOUNTER → 2024-03-12 | Outpatient (REF) | payer MEDICARE, SELFPAY ==
[2024-03-12 08:46] LABS: Hematocrit 29.1 % (37-47); Hemoglobin 8.8 g/dL (12.0-15.0); Mean Corp Hgb Conc 30.2 g/dL (32-36); Mean Corpuscular Hgb 25.8 pg (27.0-32.0); Mean Corpuscular Volume 85.3 fL (81-99); Mean Platelet Vol. 9.7 fl (6.2-12.0); Platelet Count 247 K/mm3 (150-450); RBC Distribution Width CV 16.3 % (11.6-14.6); RBC Distribution Width SD 50.7 fl (35.1-43.9); Red Blood Count 3.41 M/mm3 (4.2-5.4); White Blood Count 5.3 K/mm3 (4.4-11.0)
[2024-03-12 09:14] LABS: Anion Gap 3 (5-15); BUN 21 mg/dL (7-18); Calcium,Total 8.9 mg/dL (8.5-10.1); Chloride 99 mmol/L (98-107); Creatinine, Serum 0.72 mg/dL (0.55-1.02); EST Glomerular Filtration Rate 82 mL/min (>60); Est Glom Filt Rate - Afr Amer 99 mL/min (>60); Glucose 89 mg/dL (74-106); Potassium 4.3 mmol/L (3.5-5.1); Sodium Level 136 mmol/L (136-145)
== END ==
LOC: OLS.WCC 05:00
PROVIDERS: PCP Internal Medicine; Visit Provider Family Medicine
DX: D64.9 Anemia, unspecified (principal); J44.9 Chronic obstructive pulmonary disease, unspecified; I10 Essential (primary) hypertension; Z79.899 Other long term (current) drug therapy
CPT/HCPCS: 36415; 80048; 85027

== ENCOUNTER → 2024-04-12 | Outpatient (REF) | payer MEDICARE, SELFPAY ==
[2024-04-12 08:28] LABS: Hematocrit 34.1 % (37-47); Hemoglobin 10.1 g/dL (12.0-15.0); Mean Corp Hgb Conc 29.6 g/dL (32-36); Mean Corpuscular Hgb 25.4 pg (27.0-32.0); Mean Corpuscular Volume 85.9 fL (81-99); Mean Platelet Vol. 10.2 fl (6.2-12.0); Platelet Count 254 K/mm3 (150-450); RBC Distribution Width CV 16.5 % (11.6-14.6); RBC Distribution Width SD 51.3 fl (35.1-43.9); Red Blood Count 3.97 M/mm3 (4.2-5.4); White Blood Count 8.6 K/mm3 (4.4-11.0)
[2024-04-12 08:41] LABS: Anion Gap 6 (5-15); BUN 22 mg/dL (7-18); BUN/Creat Ratio 23.9 RATIO (10-20); Calcium,Total 9.5 mg/dL (8.5-10.1); Chloride 100 mmol/L (98-107); Creatinine, Serum 0.92 mg/dL (0.55-1.02); EST Glomerular Filtration Rate 62 mL/min (>60); Est Glom Filt Rate - Afr Amer 75 mL/min (>60); Glucose 87 mg/dL (74-106); Potassium 4.2 mmol/L (3.5-5.1); Sodium Level 137 mmol/L (136-145)
== END ==
LOC: OLS.WCC 05:00
PROVIDERS: PCP Internal Medicine; Visit Provider Family Medicine
DX: D64.9 Anemia, unspecified (principal); J44.9 Chronic obstructive pulmonary disease, unspecified; I10 Essential (primary) hypertension; Z79.899 Other long term (current) drug therapy
CPT/HCPCS: 36415; 80048; 85027

== ENCOUNTER → 2024-04-19 | Outpatient (REF) | payer MEDICARE, SELFPAY ==
[2024-04-19 10:46] LABS: Ferritin 296 ng/mL (8-252)
== END ==
LOC: OLS.WCC 05:00
PROVIDERS: PCP Internal Medicine; Visit Provider Family Medicine
DX: D64.9 Anemia, unspecified (principal); Z79.899 Other long term (current) drug therapy
CPT/HCPCS: 36415; 82728

== ENCOUNTER → 2024-05-11 | Outpatient (REF) | payer MEDICARE, SELFPAY ==
[2024-05-11 08:11] LABS: Hematocrit 28.2 % (37-47); Hemoglobin 8.6 g/dL (12.0-15.0); Mean Corp Hgb Conc 30.5 g/dL (32-36); Mean Corpuscular Hgb 25.7 pg (27.0-32.0); Mean Corpuscular Volume 84.4 fL (81-99); Mean Platelet Vol. 10.1 fl (6.2-12.0); Platelet Count 215 K/mm3 (150-450); RBC Distribution Width CV 17.5 % (11.6-14.6); RBC Distribution Width SD 53.8 fl (35.1-43.9); Red Blood Count 3.34 M/mm3 (4.2-5.4)
[2024-05-11 08:38] LABS: Anion Gap 3 (5-15); BUN 24 mg/dL (7-18); BUN/Creat Ratio 34.5 RATIO (10-20); Calcium,Total 8.8 mg/dL (8.5-10.1); Chloride 100 mmol/L (98-107); EST Glomerular Filtration Rate 85 mL/min (>60); Est Glom Filt Rate - Afr Amer 103 mL/min (>60); Glucose 84 mg/dL (74-106); Potassium 4.3 mmol/L (3.5-5.1); Sodium Level 137 mmol/L (136-145)
== END ==
LOC: OLS.WCC 05:00
PROVIDERS: PCP Internal Medicine; Visit Provider Family Medicine
DX: D64.9 Anemia, unspecified (principal); J44.9 Chronic obstructive pulmonary disease, unspecified; I10 Essential (primary) hypertension; E87.1 Hypo-osmolality and hyponatremia; Z79.899 Other long term (current) drug therapy
CPT/HCPCS: 36415; 80048; 85027

== ENCOUNTER → 2024-06-11 | Outpatient (REF) | payer MEDICARE, SELFPAY ==
[2024-06-11 08:07] LABS: Hematocrit 28.6 % (37-47); Hemoglobin 8.8 g/dL (12.0-15.0); Mean Corp Hgb Conc 30.8 g/dL (32-36); Mean Corpuscular Hgb 26.3 pg (27.0-32.0); Mean Corpuscular Volume 85.6 fL (81-99); Mean Platelet Vol. 10.9 fl (6.2-12.0); Platelet Count 223 K/mm3 (150-450); RBC Distribution Width CV 17.1 % (11.6-14.6); RBC Distribution Width SD 53.1 fl (35.1-43.9); Red Blood Count 3.34 M/mm3 (4.2-5.4); White Blood Count 5.9 K/mm3 (4.4-11.0)
[2024-06-11 08:17] LABS: Anion Gap 2 (5-15); BUN 20 mg/dL (7-18); BUN/Creat Ratio 27.8 RATIO (10-20); Calcium,Total 9.1 mg/dL (8.5-10.1); Chloride 98 mmol/L (98-107); Creatinine, Serum 0.72 mg/dL (0.55-1.02); EST Glomerular Filtration Rate 82 mL/min (>60); Est Glom Filt Rate - Afr Amer 99 mL/min (>60); Glucose 84 mg/dL (74-106); Potassium 4.2 mmol/L (3.5-5.1); Sodium Level 136 mmol/L (136-145)
== END ==
LOC: OLS.WCC 05:00
PROVIDERS: PCP Internal Medicine; Visit Provider Family Medicine
DX: D64.9 Anemia, unspecified (principal); J44.9 Chronic obstructive pulmonary disease, unspecified; I10 Essential (primary) hypertension; Z79.899 Other long term (current) drug therapy
CPT/HCPCS: 36415; 80048; 85027

== ENCOUNTER → 2024-07-12 04:00 | Outpatient (REF) | payer MEDICARE, SELFPAY ==
[2024-07-12 08:33] LABS: Hematocrit 30.6 % (37-47); Hemoglobin 10.1 g/dL (12.0-15.0); Mean Corpuscular Hgb 27.2 pg (27.0-32.0); Mean Corpuscular Volume 82.5 fL (81-99); Mean Platelet Vol. 11.7 fl (6.2-12.0); Platelet Count 385 K/mm3 (150-450); RBC Distribution Width CV 16.6 % (11.6-14.6); Red Blood Count 3.71 M/mm3 (4.2-5.4); White Blood Count 16.4 K/mm3 (4.4-11.0)
[2024-07-12 08:55] LABS: Anion Gap 6 (5-15); BUN 28 mg/dL (7-18); BUN/Creat Ratio 33.4 RATIO (10-20); Chloride 92 mmol/L (98-107); Creatinine, Serum 0.84 mg/dL (0.55-1.02); EST Glomerular Filtration Rate 69 mL/min (>60); Est Glom Filt Rate - Afr Amer 83 mL/min (>60); Glucose 78 mg/dL (74-106); Potassium 4.2 mmol/L (3.5-5.1); Sodium Level 129 mmol/L (136-145)
== END ==
LOC: OLS.WCC 04:00
PROVIDERS: PCP Internal Medicine; Referring Provider Family Medicine; Visit Provider Family Medicine
DX: D64.9 Anemia, unspecified (principal); J44.9 Chronic obstructive pulmonary disease, unspecified; I10 Essential (primary) hypertension; Z79.899 Other long term (current) drug therapy
CPT/HCPCS: 36415; 80048; 85027

== ENCOUNTER → 2024-08-12 05:00 | Outpatient (REF) | payer MEDICARE, SELFPAY ==
[2024-08-12 07:07] LABS: Hematocrit 29.2 % (37-47); Hemoglobin 9.5 g/dL (12.0-15.0); Mean Corp Hgb Conc 32.5 g/dL (32-36); Mean Corpuscular Hgb 26.8 pg (27.0-32.0); Mean Corpuscular Volume 82.3 fL (81-99); Mean Platelet Vol. 10.1 fl (6.2-12.0); Platelet Count 266 K/mm3 (150-450); RBC Distribution Width CV 17.2 % (11.6-14.6); RBC Distribution Width SD 51.1 fl (35.1-43.9); Red Blood Count 3.55 M/mm3 (4.2-5.4); White Blood Count 7.5 K/mm3 (4.4-11.0)
[2024-08-12 07:15] LABS: Anion Gap 5 (5-15); BUN 20 mg/dL (7-18); BUN/Creat Ratio 26.3 RATIO (10-20); Calcium,Total 8.4 mg/dL (8.5-10.1); Chloride 102 mmol/L (98-107); Creatinine, Serum 0.76 mg/dL (0.55-1.02); EST Glomerular Filtration Rate 77 mL/min (>60); Est Glom Filt Rate - Afr Amer 93 mL/min (>60); Glucose 88 mg/dL (74-106); Potassium 4.2 mmol/L (3.5-5.1); Sodium Level 136 mmol/L (136-145)
== END ==
LOC: OLS.WCC 05:00
PROVIDERS: PCP Internal Medicine; Visit Provider Family Medicine
DX: D64.9 Anemia, unspecified (principal); J44.9 Chronic obstructive pulmonary disease, unspecified; I10 Essential (primary) hypertension; Z79.899 Other long term (current) drug therapy
CPT/HCPCS: 36415; 80048; 85027

== ENCOUNTER → 2024-09-10 | Outpatient (REF) | payer MEDICARE, SELFPAY ==
[2024-09-10 07:17] LABS: Hematocrit 27.6 % (37-47); Hemoglobin 8.9 g/dL (12.0-15.0); Mean Corp Hgb Conc 32.2 g/dL (32-36); Mean Corpuscular Hgb 26.3 pg (27.0-32.0); Mean Corpuscular Volume 81.7 fL (81-99); Mean Platelet Vol. 10.2 fl (6.2-12.0); Platelet Count 327 K/mm3 (150-450); RBC Distribution Width CV 17.8 % (11.6-14.6); RBC Distribution Width SD 53.4 fl (35.1-43.9); Red Blood Count 3.38 M/mm3 (4.2-5.4); White Blood Count 6.9 K/mm3 (4.4-11.0)
[2024-09-10 08:28] LABS: Anion Gap 10 (5-15); BUN 19 mg/dL (4-19); BUN/Creat Ratio 30.8 RATIO (10-20); Calcium,Total 8.6 mg/dL (7.6-11.0); Carbon Dioxide 23.9 mmol/L (21.0-32.0); Chloride 102 mmol/L (98-108); Creatinine, Serum 0.62 mg/dL (0.70-1.20); EST Glomerular Filtration Rate 88 (>60); Glucose 82 mg/dL (70-99); Potassium 3.9 mmol/L (3.3-5.1); Sodium Level 135 mmol/L (133-145)
== END ==
LOC: OLS.WCC 05:00
PROVIDERS: PCP Internal Medicine; Visit Provider Family Medicine
DX: J44.9 Chronic obstructive pulmonary disease, unspecified (principal); D50.8 Other iron deficiency anemias
CPT/HCPCS: 36415; 80048; 85027

== ENCOUNTER → 2024-10-14 | Outpatient (REF) | payer MEDICARE, SELFPAY ==
[2024-10-14 08:35] LABS: Hematocrit 28.3 % (37-47); Hemoglobin 8.8 g/dL (12.0-15.0); Mean Corp Hgb Conc 31.1 g/dL (32-36); Mean Corpuscular Hgb 25.5 pg (27.0-32.0); Mean Platelet Vol. 10.7 fl (6.2-12.0); Platelet Count 299 K/mm3 (150-450); RBC Distribution Width CV 17.2 % (11.6-14.6); RBC Distribution Width SD 51.3 fl (35.1-43.9); Red Blood Count 3.45 M/mm3 (4.2-5.4); White Blood Count 6.6 K/mm3 (4.4-11.0)
[2024-10-14 09:22] LABS: Anion Gap 8 (5-15); BUN 21 mg/dL (4-19); BUN/Creat Ratio 32.5 RATIO (10-20); Calcium,Total 8.8 mg/dL (7.6-11.0); Carbon Dioxide 29.1 mmol/L (21.0-32.0); Chloride 98 mmol/L (98-108); Creatinine, Serum 0.66 mg/dL (0.70-1.20); EST Glomerular Filtration Rate 87 (>60); Glucose 88 mg/dL (70-99); Potassium 4.5 mmol/L (3.3-5.1); Sodium Level 135 mmol/L (133-145)
== END ==
LOC: OLS.WCC 04:00
PROVIDERS: PCP Internal Medicine; Referring Provider Family Medicine; Visit Provider Family Medicine
DX: J44.9 Chronic obstructive pulmonary disease, unspecified (principal); I10 Essential (primary) hypertension
CPT/HCPCS: 36415; 80048; 85027

== ENCOUNTER → 2025-04-12 04:00 | Outpatient (REF) | payer MEDICARE, SELFPAY ==
[2025-04-12 09:17] LABS: Hematocrit 29.3 % (37-47); Hemoglobin 8.9 g/dL (12.0-15.0); Mean Corp Hgb Conc 30.4 g/dL (32-36); Mean Corpuscular Volume 85.2 fL (81-99); Mean Platelet Vol. 11.2 fl (6.2-12.0); Platelet Count 286 K/mm3 (150-450); RBC Distribution Width CV 17.5 % (11.6-14.6); RBC Distribution Width SD 54.4 fl (35.1-43.9); Red Blood Count 3.44 M/mm3 (4.2-5.4); White Blood Count 5.7 K/mm3 (4.4-11.0)
[2025-04-12 09:27] LABS: Anion Gap 6 (5-15); BUN 21 mg/dL (4-19); BUN/Creat Ratio 40.9 RATIO (10-20); Calcium,Total 8.6 mg/dL (7.6-11.0); Carbon Dioxide 32.2 mmol/L (21.0-32.0); Chloride 99 mmol/L (98-108); Glucose 78 mg/dL (70-99); Potassium 4.3 mmol/L (3.3-5.1)
== END ==
LOC: OLS.WCC 04:00
PROVIDERS: PCP Internal Medicine; Referring Provider Family Medicine; Visit Provider Family Medicine
DX: M62.50 Muscle wasting and atrophy, not elsewhere classified, unspecified site (principal); I61.0 Nontraumatic intracerebral hemorrhage in hemisphere, subcortical; M62.81 Muscle weakness (generalized); E87.1 Hypo-osmolality and hyponatremia; D50.8 Other iron deficiency anemias
CPT/HCPCS: 36415; 80048; 85027